=== PATIENT | female | born 1950 | race Caucasian/White ===

== ENCOUNTER 2019-07-22 14:19 | Inpatient (IN) | payer MEDICARE, OTHER ==
[~2019-07-22] VITALS: Ht 177.8 cm; Wt 72.6 kg
[2019-07-22 16:34] LABS: BASOPHILS # (AUTO) 0.1 (0.0-0.1); EOSINOPHILS # (AUTO) 0.1 (0.0-0.4); HEMATOCRIT 48.2 % (34.2-44.1); HEMOGLOBIN 16.7 g/dL (12.0-16.0); LYMPHOCYTES # (AUTO) 2.2 (1.0-3.2); LYMPHOCYTES % 17.6 % (18.0-39.1); MEAN CORPUSCULAR HEMOGLOBIN 30.3 pg (28-32); MEAN CORPUSCULAR HGB CONC 34.6 g/dL (31-35); MEAN CORPUSCULAR VOLUME 87.3 fL (81-99); MONOCYTES # (AUTO) 1.2 (0.2-0.8); MONOCYTES % 9.7 % (4.4-11.3); NEUTROPHILS # (AUTO) 8.8 (2.1-6.9); PLATELET COUNT 418 x10e3/uL (140-360); RED BLOOD COUNT 5.52 x10e6/uL (3.6-5.1); RED CELL DISTRIBUTION WIDTH 16.5 % (11.7-14.4)
[2019-07-22 16:44] LABS: INR 0.95; PROTHROMBIN TIME 13.2 seconds (11.9-14.5)
[2019-07-22 16:45] LABS: PARTIAL THROMBOPLASTIN TIME 26.7 seconds (23.8-35.5)
[2019-07-22 16:52] LABS: ALBUMIN 3.9 g/dL (3.5-5.0); ALBUMIN/GLOBULIN RATIO 1.1 (0.8-2.0); ANION GAP 18.5 mmol/L (8-16); CALCIUM 9.9 mg/dL (8.4-10.2); CREATININE, SERUM 0.97 mg/dL (0.57-1.11)
[2019-07-22 16:54] LABS: POTASSIUM 1.5 mmol/L (3.5-5.1)
[2019-07-22 17:00] LABS: CREATINE KINASE MB 10.9 ng/mL (0-5.0)
[2019-07-22] MEDS ORDERED: POTASSIUM CHLORIDE 20 MEQ TAB CR PO ONE (17:14)
[2019-07-22] MEDS ORDERED: KCL 20MEQ/.9 SOD CHL 1,000 ML IV ONE ×2 (17:14→17:15)
[2019-07-22] MEDS ORDERED: POTASSIUM CHLORIDE 20 MEQ TAB CR PO NR ×2 (17:15→20:45)
--- NOTE | 2019-07-22 17:17 | Diagnostic Imaging Report ---
EXAMINATION: Head CT HISTORY: Weakness, evaluate for stroke. COMPARISON: None. TECHNIQUE: Helical axial images of the head were obtained. Reformatted coronal and sagittal images from the axial data. Dose modulation, iterative reconstruction, and/or weight based adjustment of the mA/kV was utilized to reduce the radiation dose to as low as reasonably achievable. Image quality: Motion/streaking artifact limits the evaluation of the skull base and posterior cranial fossa. FINDINGS: Parenchyma: 1. No abnormal densities. 2. No mass or hemorrhage. No CT evidence of acute territorial vascular insult. Extra-axial spaces: Mild asymmetry of the inferior parietal sulci, there is partial effacement of the right compared to the left and questionable increase attenuation of the adjacent sulci, this may represent a be normal variation of the anatomy, less likely due to underlying inflammatory or ischemic process, there is no associated mass effect at this time, if clinical concern remains consider a brain MRI without and with contrast for further evaluation. Brain volume: Normal for age. Ventricles: No hydrocephalus or displacement. Arteries: No density suggestive of thrombus. Dural sinuses: No abnormal density. Foramen magnum: No mass, Chiari malformation, or basilar invagination. Sella: No obvious mass. Paranasal/mastoid sinuses: Imaged portions unremarkable. Skull/Scalp: No lytic or blastic lesions. No fractures. IMPRESSION: 1. No acute intracranial hemorrhage or cortical infarcts. 2. Questionable asymmetry and partial effacement of the right parietal sulci as detail above. Signed by: Dr. Miryam Wong M.D. on 07/22/2019 5:14 PM
--- NOTE | 2019-07-22 18:04 | NUR ---
covid swab done
[2019-07-22] MEDS ORDERED: ULTRAM 50MG50 MG PO (18:11)
[2019-07-22] MEDS ORDERED: VIT (18:11)
[2019-07-22] MEDS ORDERED: HYDROCODON-ACE1 EA12 PO (18:11)
[2019-07-22] MEDS ORDERED: NYSTATIN100000 UNI (18:11)
[2019-07-22] MEDS ORDERED: FERROUS SULFAT325 MG PO (18:11)
[2019-07-22] MEDS ORDERED: MELOXICAM7.5 MG (18:11)
[2019-07-22] MEDS ORDERED: BACLOFEN (18:11)
[2019-07-22] MEDS ORDERED: ALENDRONATE SOD70 MG PO (18:11)
[2019-07-22] MEDS ORDERED: CLONAZEPAM0.5 MG PO (18:11)
[2019-07-22] MEDS ORDERED: GABAPENTIN300 MG PO (18:11)
[2019-07-22] MEDS ORDERED: SUCRALFATE1 GM (18:11)
[2019-07-22] MEDS ORDERED: DULOXETINE HCL60 MG PO (18:11)
[2019-07-22] MEDS ORDERED: CLONAZEPAM (18:11)
[2019-07-22] MEDS ORDERED: K DUR10 MEQ (18:11)
[2019-07-22] MEDS ORDERED: COMBIVENT RESPIM4 GM (18:11)
[2019-07-22] MEDS ORDERED: OMEPRAZOLE PO (18:11)
[2019-07-22] MEDS ORDERED: LEVOCETIRIZINE PO (18:11)
[2019-07-22] MEDS ORDERED: TIZANIDINE HCL4 MG PO (18:11)
[2019-07-22] MEDS ORDERED: BENZONATATE100 MG (18:11)
[2019-07-22] MEDS ORDERED: ALENDRONATE (18:11)
--- NOTE | 2019-07-22 18:31 | NUR ---
tray eaten. no distress. both hands pt using without any difficulty. FROM.
--- NOTE | 2019-07-22 18:32 | NUR ---
straight cath ua, tere, sediment.
[2019-07-22] MEDS ORDERED: SODIUM CHLORIDE 0.9% 1000ML 1,000 ML IV STA (18:39)
--- NOTE | 2019-07-22 18:39 | NUR ---
water pitcher given with ice per request, blankets given, ordered more pillows.
[2019-07-22] MEDS ORDERED: HYDROCODONE/APAP 5MG-325MG TAB ONE (18:40)
[2019-07-22] MEDS ORDERED: HYDROCODONE/APAP 5MG-325MG TAB PO ONE (18:45)
[2019-07-22 18:48] LABS: BILIRUBIN,URINE MODERATE (NEGATIVE); CLARITY,URINE SL CLOUDY (CLEAR); COLOR,URINE STRAW (YELLOW); KETONES,URINE 2+ (NEGATIVE); LEUKOCYTE ESTERASE ,URINE NEGATIVE (NEGATIVE); NITRITE,URINE NEGATIVE (NEGATIVE); PROTEIN,URINE DIPSTICK 2+ (NEGATIVE); URINE UROBILINOGEN 1 mg/dL (0.2 - 1)
[2019-07-22 19:00] LABS: WBC,URINE (MAN) 0-5 /HPF (0-5)
[2019-07-22 19:01] LABS: BACTERIA,URINE RARE /HPF; EPITHELIAL CELLS,URINE FEW /LPF; RBC,URINE 0-5 /HPF (0-5)
--- NOTE | 2019-07-22 19:39 | Emergency Department Note ---
History of Present Illnes History of Present Illness Chief Complaint: General Medicine Complaints History of Present Illness This is a 69 year old female . Chief Complaint Comment weak x 5 days. aaox4. 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 pt usually can pivot, but feels weaker than usually. nad. no covid s/s. 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 Any updates have been documented here. Past Medical History Recent Fever: No Clinical Suspicion of Infectio: No New/Unexplained Change in Ment: No Past Medical History: Hypertension, Diabetes Other Surgery: rt leg amputee [facility] 1984 Social History Smoking Cessation: Former smoker Counseling Performed: No Alcohol Use: None Any Illegal Drug Use: No TB Exposure/Symptoms: No Physically hurt or threatened: No Other Last Flu: y Last Pneumovax: y Physical Exam Related Data Allergies: Coded Allergies: No Known Allergies (Unverified , 07/22/19) Triage Vital Signs Vital Signs Date Time Temp Pulse Resp B/P (MAP) Pulse Ox O2 Delivery O2 Flow Rate FiO2 07/22/19 14:24 98.2 79 16 126/95 95 Vital signs reviewed: Yes Physical Exam CONSTITUTIONAL Constitutional: Present well-developed, Present well-nourished HENT HENT: Present normocephalic, Present atraumatic, Present oropharynx clear/moist, Present nose normal HENT L/R: Present left ext ear normal, Present right ext ear normal EYES Eyes: Reports PERRL, Reports conjunctivae normal NECK Neck: Present ROM normal PULMONARY Pulmonary: Present effort normal, Present breath sounds normal CARDIOVASCULAR Cardiovascular: Present regular rhythm, Present heart sounds normal, Present capillary refill normal, Present normal rate GASTROINTESTINAL Abdominal: Present soft, Present nontender, Present bowel sounds normal GENITOURINARY Genitourinary: Present exam deferred SKIN Skin: Present warm, Present dry MUSCULOSKELETAL Musculoskeletal: Present ROM normal NEUROLOGICAL Neurological: Present alert, Present oriented x 3, Present other (right-sided amputee) PSYCHOLOGICAL Psychological: Present mood/affect normal, Present judgement normal Results Laboratory Result Diagram: 07/22/19 1603 07/22/19 1603 Laboratory Laboratory Tests Test 07/22/19 18:30 07/22/19 16:03 Urine Color Straw (YELLOW) Urine Clarity Sl cloudy (CLEAR) Urine pH 6.5 (5 - 7) Urine Specific [place] 1.025 (1.010-1.025) Urine Protein 2+ (NEGATIVE) Urine Glucose (UA) Negative (NEGATIVE) Urine Ketones 2+ (NEGATIVE) Urine Blood Trace (NEGATIVE) Urine Nitrite Negative (NEGATIVE) Urine Bilirubin Moderate (NEGATIVE) Urine Urobilinogen 1 mg/dL (0.2 - 1) Urine Leukocyte Esterase Negative (NEGATIVE) Urine RBC 0-5 /HPF (0-5) Urine WBC 0-5 /HPF (0-5) Urine Epithelial Cells Few /LPF (NONE) Urine Bacteria Rare /HPF (NONE) White Blood Count 12.59 x10e3/uL (4.8-10.8) Red Blood Count 5.52 x10e6/uL (3.6-5.1) Hemoglobin 16.7 g/dL (12.0-16.0) Hematocrit 48.2 % (34.2-44.1) Mean Corpuscular Volume 87.3 fL (81-99) Mean Corpuscular Hemoglobin 30.3 pg (28-32) Mean Corpuscular Hemoglobin Concent 34.6 g/dL (31-35) Red Cell Distribution Width 16.5 % (11.7-14.4) Platelet Count 418 x10e3/uL (140-360) Neutrophils (%) (Auto) 70.0 % (38.7-80.0) Lymphocytes (%) (Auto) 17.6 % (18.0-39.1) Monocytes (%) (Auto) 9.7 % (4.4-11.3) Eosinophils (%) (Auto) 1.0 % (0.0-6.0) Basophils (%) (Auto) 1.0 % (0.0-1.0) Neutrophils # (Auto) 8.8 (2.1-6.9) Lymphocytes # (Auto) 2.2 (1.0-3.2) Monocytes # (Auto) 1.2 (0.2-0.8) Eosinophils # (Auto) 0.1 (0.0-0.4) Basophils # (Auto) 0.1 (0.0-0.1) Absolute Immature Granulocyte (auto 0.09 x10e3/uL (0-0.1) Prothrombin Time 13.2 seconds (11.9-14.5) Prothromb Time International Ratio 0.95 Activated Partial Thromboplast Time 26.7 seconds (23.8-35.5) Sodium Level 146 mmol/L (136-145) Potassium Level 1.5 mmol/L (3.5-5.1) Chloride Level 98 mmol/L (98-107) Carbon Dioxide Level 31 mmol/L (22-29) Anion Gap 18.5 mmol/L (8-16) Blood Urea Nitrogen 14 mg/dL (7-26) Creatinine 0.97 mg/dL (0.57-1.11) Estimat Glomerular Filtration Rate 57 ML/MIN (60-) BUN/Creatinine Ratio 14 (6-25) Glucose Level 144 mg/dL (74-118) Calcium Level 9.9 mg/dL (8.4-10.2) Total Bilirubin 1.1 mg/dL (0.2-1.2) Aspartate Amino Transf (AST/SGOT) 119 IU/L (5-34) Alanine Aminotransferase (ALT/SGPT) 69 IU/L (0-55) Alkaline Phosphatase 56 IU/L (40-150) Creatine Kinase 2635 IU/L (29-168) Creatine Kinase MB 10.90 ng/mL (0-5.0) Troponin I 0.026 ng/mL (0-0.300) Total Protein 7.6 g/dL (6.5-8.1) Albumin 3.9 g/dL (3.5-5.0) Globulin 3.7 g/dL (2.3-3.5) Albumin/Globulin Ratio 1.1 (0.8-2.0) Lab results reviewed: Yes Critical Care Time Total Critical Care Time (min): 35 Critical care time exclusive o: separately billable procedures Critcal care necessary due to: metabolic failure Assessment & Plan Medical Decision Making MDM 69-year-old female arrives to the ED with complaints of generalized malaise and weakness. Patient admitted to the wheelchair at baseline, states her upper extremities feel weaker than usual. Patient states she has been in a wheelchair for nearly 3 decades and while she suffers from chronic rotator cuff and muscle aches this degree of weakness is different. Patient's potassium was 1.5, aggressive oral and IV replacement done in the ED. Patient with marked CK elevation concerning for rhabdo. Patient admitted for fluid resuscitation and electrolyte replacement. Patient hemodynamically stable at time of admission. Assessment & Plan Final Impression: (1) Hypokalemia (2) Rhabdomyolysis Depart Disposition: HOME, SELF-CARE Last Vital Signs Date Time Temp Pulse Resp B/P (MAP) Pulse Ox O2 Delivery O2 Flow Rate FiO2 07/22/19 18:18 78 20 148/69 07/22/19 14:24 98.2 95 Home Meds Reported Medications Vitamin B Complex (B COMPLEX) 1 Each Tablet, 1 TAB.CHEW PO QD17 07/23/19 Ascorbic Acid/Ascorbate Sodium (Vitamin C 250 mg Tablet Chew) 250 Mg Tab.chew, 2 TAB.CHEW PO QD17 07/23/19 Multivit-Min/Folic Acid/Qrr356 (Alive Women's Gummy Vitamin) 1 Each Tab.chew, 2 TAB.CHEW PO QD17 07/23/19 [elbererry gummies] No Conflict Check, 2 TAB.CHEW PO QD17 07/23/19 Ergocalciferol (Vitamin D2) (Ergocal) 62.5 Mcg Capsule, 1.25 MG PO weekly Q sunday07/23/19 Hydrocodone Bit/Acetaminophen (HYDROCODON-ACETAMINOPH 7.5-325) 1 Each Tablet, 1 TAB PO Q4HR PRN for MODERATE PAIN (4-6) 07/22/19 Duloxetine HCl (Duloxetine HCl) 60 Mg Capsule.dr, 60 MG PO DAILY 07/22/19 [Omeprazole] No Conflict Check, 40 MG PO DAILY 07/22/19 Ipratropium/Albuterol Sulfate (COMBIVENT RESPIMAT INHAL SPRAY) 4 Gm Aer.w.adap 07/22/19 Gabapentin (GABAPENTIN) 300 Mg Capsule, 600 MG PO TID 07/22/19 [Levocetirizine] No Conflict Check, 5 MG PO QD17 PRN for ALLERGY 07/22/19 Tizanidine Hcl (TIZANIDINE HCL) 4 Mg Tablet, 4 MG PO Q8H PRN for MUSCLE SPASMS 07/22/19 Clonazepam (CLONAZEPAM) 0.5 Mg Tablet, 0.5 MG PO TID PRN for ANXIETY 07/22/19 Tramadol Hcl* (ULTRAM 50MG*) 50 Mg Tab, 50 MG PO PRN PRN for MODERATE PAIN (4-6) 07/22/19 Alendronate Sodium (ALENDRONATE SODIUM) 70 Mg Tablet, 70 MG PO weekly Q Wednesdays07/22/19 Ferrous Sulfate (FERROUS SULFATE) 325 Mg Tablet, 1 TAB PO DAILY 07/22/19 Discontinued Reported Medications Nystatin (NYSTATIN) 100,000 Unit/1 Ml Oral.susp 07/22/19 Benzonatate (BENZONATATE) 100 Mg Capsule 07/22/19 [Vit] No Conflict Check 07/22/19 [Clonazepam] No Conflict Check 07/22/19 [Alendronate] No Conflict Check 07/22/19 Potassium Chloride* (K DUR*) 10 Meq Tabcr 07/22/19 [Baclofen] No Conflict Check 07/22/19 Meloxicam (MELOXICAM) 7.5 Mg Tablet 07/22/19 Sucralfate (SUCRALFATE) 1 Gm Tablet 07/22/19 LESLEY PACHECO, DO Jul 22, 2019 19:39
--- NOTE | 2019-07-22 20:00 | NUR ---
Spoke to AOS regarding patient low potassium level 1.5 and no order for tele, no order to redraw potassium level after po and IV coverage . Patient to be admitted to floor. AOS to speak to ER
[2019-07-22] MEDS ORDERED: IPRATROPIUM/ALBUTEROL SULFATE 4 GM INH INH PRN (20:15)
[2019-07-22] MEDS ORDERED: TIZANIDINE HCL 4 MG TAB PO PRN (20:15)
[2019-07-22] MEDS ORDERED: GABAPENTIN 300 MG CAP PEG PRN (20:15)
[2019-07-22] MEDS ORDERED: POTASSIUM CHLORIDE 10MEQ/100ML 100 ML INJ STA (20:41)
[2019-07-22] MEDS ORDERED: D5/.45NS KCL 40MEQ **PREMIX BAG 1000ML IV ONE ×2 (20:45→21:45)
[2019-07-22 21:06] LABS: FREE THYROXINE INDEX 1.9855 (1.4-3.8); THYROID STIMULATING HORMONE 2.362 uIU/mL (0.350-4.940)
--- NOTE | 2019-07-22 21:12 | NUR ---
Spoke to Dr Leone regarding orders placed for additional potassium 80mEq po x1, potassium Chloride 10mEQ IVx1, D51/2NS with 40KCL. Patient had 80mEq po in ER and 20mEq IV with NS 1L. Potassium level redrawn 1.8, clarify okay to give new orders for potassium. Okay to give potassium orders and magnesium level low will place orders for IV magnesium replacement.
[2019-07-22] MEDS ORDERED: MAGNESIUM SULFATE 2GM/50ML 50 ML IV ONE (21:15)
--- NOTE | 2019-07-22 21:40 | NUR ---
Pharmacy needing rate for D51/2 NS with 40 mEq KCL. Spoke with Dr Leone regarding clarification on rate. 75ml/hr.
[2019-07-22] MEDS ORDERED: SODIUM CHLORIDE 0.9% 250ML 250 ML ONE (21:50)
[2019-07-22] MEDS: POTASSIUM CHLORIDE 20 MEQ TAB CR PO NR (22:30)
[2019-07-22 23:00] VITALS: BP 135/58
--- NOTE | 2019-07-22 23:00 | NUR ---
Patient c/o IV burning, IV assessed and potassium chloride decreased to 40ml/hr. Will continue to monitor
--- NOTE | 2019-07-22 23:05 | NUR ---
Patient c/o IV burning, IV assessed. Educated patient that side effect of potassium. Patient states " I cannot take it, please slow it down." and potassium chloride decreased to 35ml/hr. Will continue to monitor
--- NOTE | 2019-07-22 23:10 | NUR ---
Patient c/o IV burning, IV assessed, blood return and flushes easily. Educated reinforced, side effect of potassium. Patient states " Can please slow it down." and potassium chloride decreased to 30ml/hr. Will continue to monitor.
--- NOTE | 2019-07-22 23:30 | NUR ---
Patient c/o IV burning, IV assessed, blood return and flushes easily. New IV placed to right forearm 20g. Patient continues to complain IV burning " Can please slow it down." and potassium chloride decreased to 25ml/hr. Will continue to monitor.
[2019-07-23] VITALS (7 sets, daily range): BP systolic 115–138; BP diastolic 64–93
--- NOTE | 2019-07-23 | NUR ---
Patient c/o IV burning, IV assessed, blood return and flushes easily. Patient request to slow potassium down, IV burning and potassium chloride decreased to 20ml/hr. Potassium level to be redrawn after IV runner, Blood drawn delayed r/t Patient request IV to be decreased. Will continue to monitor.
--- NOTE | 2019-07-23 00:30 | NUR ---
Patient tolerating potassium chloride at 20ml/hr with NS runner. Will continue to monitor.
[2019-07-23] MEDS ORDERED: MAGNESIUM SULFATE 2GM/50ML 50 ML IV ONE (00:41)
--- NOTE | 2019-07-23 01:27 | History and Physical ---
PRIMARY CARE PHYSICIAN: Dr. Salvador at [facility]. CHIEF COMPLAINT: Generalized weakness in the upper extremities and left leg with contraction of her both hands. HISTORY OF PRESENT ILLNESS: This is a 69-year-old female with past medical history of anxiety, depression, chronic back pain, IBS, presented to the ER with complaints of increasing weakness, especially in the bilateral upper extremities with contraction of both hands. She reports 2 weeks ago had noticed pain and spasm in the left thigh area. She continued to get weaker to the point where 2 days ago, she had to call EMS because she could not move her upper extremities. They assessed her for stroke and told her it is less likely that is a stroke. So, she was advised to stay at home due to the pandemic. She continued to have the weakness and contractures, so presented to the ER for further evaluation for her PCP instructions. She denies any chest pain, shortness of breath, slurred speech, change in mental status, change in vision, nausea, or vomiting. She denies any pain in the abdomen or the lower extremities, no swelling or redness. 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 In the ER, she was noted to have severe hypokalemia with a potassium level of 1.5. CK was 2635. She was admitted for further evaluation. CT was negative for acute process. PAST MEDICAL HISTORY: 1. Anxiety. 2. Depression. 3. IBS. 4. Wheelchair bound. PAST SURGICAL HISTORY: She had right AKA, gastric bypass, cholecystectomy, , right shoulder repair. FAMILY MEDICAL HISTORY: She reports father of alcohol cirrhosis. SOCIAL HISTORY: She reports smokes E-cigarettes. Denies any alcohol or illicit drug use. ALLERGIES: NO KNOWN DRUG ALLERGIES. REVIEW OF SYSTEMS: Twelve systems reviewed and negative except as reported in HPI. PHYSICAL EXAMINATION: VITAL SIGNS: Temperature 98.2, pulse is 79, respirations 16, blood pressure 126/95, pulse ox is 95% on room air. GENERAL: No acute distress. HEENT: Normocephalic, atraumatic. NECK: Supple. LUNGS: Clear to auscultation. CARDIOVASCULAR: Regular rate and rhythm. GI: Soft and nontender. NEUROLOGIC: Alert, awake, and oriented x3. MUSCULOSKELETAL: Right AKA in 1980s. Left lower extremity, no edema or swelling. SKIN: Dry and intact. PSYCH: Calm. LABORATORY DATA: WBC 12.59, hemoglobin 16.7, hematocrit 48.2, platelets 418. Sodium 146, potassium 1.5, CO2 31, anion gap 18.5, creatinine 0.97, estimated GFR is 57, glucose 144, magnesium 1.5, AST 119, ALT 69. CK 2635, CK-MB 10.90, troponin 0.026, globulin 3.7, PT 13.2, INR 0.95, APTT 26.7. Urine is unremarkable. Brown PCR is pending. CT brain, no acute process noted, questionable asymmetry and partial effacement of the parietal sulci as detailed above. IMPRESSION AND PLAN: 1. Severe hypokalemia. Potassium is 1.5. She was given 80 mEq in the ER and 1 L NS. Repeat potassium regularly q.4. and replace as needed. We will place on telemetry, we will check TSH. 2. Increased weakness and contraction. Most likely due to hypokalemia. CT brain was negative for acute process. We will continue to monitor for now. 3. Mild leukocytosis. WBC is 12.59. We will monitor off antibiotics as there is no signs of infection and patient is afebrile. 4. Hemoconcentration. Hemoglobin is 16.7. Likely due to dehydration. We will continue with IV fluid hydration and repeat labs in a.m. 5. Rhabdomyolysis. CK is 2635. Reports has not had anything to eat or drink in a few days. Because she said she did not have an appetite, and that could also because of hypokalemia. We will continue to hydrate with IV fluids and we will check labs in a.m. 6. Anxiety and depression. Continue home medications. 7. Chronic back pain and phantom pain. Continue hydrocodone and Neurontin. 8. History of IBS. She denies any diarrhea. Has not had a flare up in a few months. 9. Deep vein thrombosis prophylaxis. Lovenox daily. Continue to monitor potassium level regularly and replace as needed. Monitor on tele for any arrhythmias and pain management. Dictated by CECILIA Christian Ashleyching Jere Leone MD MY/MODL /[id number]
[2019-07-23] MEDS ORDERED: ERGOCAL62.5 MCG PO (02:57)
[2019-07-23] MEDS ORDERED: ALIVE WOMEN'S1 EAC1 PO (03:01)
[2019-07-23] MEDS ORDERED: VITAMIN C 250250 MG PO (03:01)
[2019-07-23] MEDS ORDERED: ELDERBERRY PO (03:01)
[2019-07-23] MEDS ORDERED: B COMPLEX1 EACH PO (03:01)
[2019-07-23 05:04] LABS: BASOPHILS # (AUTO) 0.1 (0.0-0.1); BASOPHILS % 1.2 % (0.0-1.0); EOSINOPHILS # (AUTO) 0.1 (0.0-0.4); EOSINOPHILS % 1.2 % (0.0-6.0); HEMATOCRIT 42.6 % (34.2-44.1); HEMOGLOBIN 14.2 g/dL (12.0-16.0); LYMPHOCYTES % 20.7 % (18.0-39.1); MEAN CORPUSCULAR HEMOGLOBIN 30.7 pg (28-32); MEAN CORPUSCULAR HGB CONC 33.3 g/dL (31-35); MONOCYTES # (AUTO) 0.8 (0.2-0.8); NEUTROPHILS # (AUTO) 6.6 (2.1-6.9); NEUTROPHILS % 68.2 % (38.7-80.0); PLATELET COUNT 239 x10e3/uL (140-360); RED BLOOD COUNT 4.63 x10e6/uL (3.6-5.1); RED CELL DISTRIBUTION WIDTH 16.6 % (11.7-14.4)
[2019-07-23 05:35] LABS: ANION GAP 16.8 mmol/L (8-16); BLOOD UREA NITROGEN 13 mg/dL (7-26); BUN/CREATININE RATIO 16 (6-25); CARBON DIOXIDE 25 mmol/L (22-29); CHLORIDE 106 mmol/L (98-107); CREATININE, SERUM 0.83 mg/dL (0.57-1.11); EST GLOMERULAR FILTRATION RATE > 60 ML/MIN (60-); GLUCOSE 140 mg/dL (74-118); SODIUM 145 mmol/L (136-145)
[2019-07-23 05:38] LABS: CALCIUM 8.4 mg/dL (8.4-10.2); POTASSIUM 2.8 mmol/L (3.5-5.1)
[2019-07-23] MEDS ORDERED: POTASSIUM CHLORIDE 20 MEQ TAB CR PO STA (05:56)
--- NOTE | 2019-07-23 05:58 | NUR ---
Called Dr Leone regarding lab alert potassium 2.8. Give potassium 40mEq po x1 now, then potassium 20 mEq po in 2 hrs. Imodium 4 mg po x1.
[2019-07-23] MEDS ORDERED: LOPERAMIDE HCL 2 MG CAP PO ONE (06:00)
[2019-07-23] MEDS ORDERED: ALENDRONATE SODIUM 70 MG TAB PO SCH (06:30)
[2019-07-23] MEDS ORDERED: POTASSIUM CHLORIDE 20 MEQ TAB CR PO ONE ×2 (08:00→16:35)
[2019-07-23] MEDS: MELOXICAM 7.5 MG TAB PO SCH (09:00)
[2019-07-23] MEDS: FERROUS SULFATE 325 MG TAB PO SCH (09:43)
[2019-07-23] MEDS: SUCRALFATE 1 GM TAB PO SCH (09:43)
[2019-07-23] MEDS: POTASSIUM CHLORIDE 10MEQ EA PO SCH (09:44)
[2019-07-23] MEDS: SODIUM CHLORIDE 0.9% 1000ML 1,000 ML IV SCH ×2 (09:45→18:32)
--- NOTE | 2019-07-23 10:30 | NUR ---
ASSESSMENT: Spiritual concern Pt thankful for hospital and treatment. Pt states she was more ill than what she originally thought. Pt identifies as Holiness. Pt states her daughter is "a blessing" by helping care for her. Intervention: Provided empathic listening and unhurried pastoral presence. Provided information on how to reach script developer, if needed. Outcome: Pt expressed appreciation for visit. No need to follow at this time. JADEN KIRKLAND [employer] Spiritual Care Department O: [phone]
[2019-07-23] MEDS: POTASSIUM CHLORIDE 20 MEQ TAB CR PO NR (13:42)
[2019-07-23] MEDS: HYDROCODONE/APAP 7.5MG-325MG 1 EA TAB PO PRN ×2 (15:21→22:23)
[2019-07-23 15:34] LABS: ANION GAP 14.8 mmol/L (8-16); BLOOD UREA NITROGEN 9 mg/dL (7-26); BUN/CREATININE RATIO 11 (6-25); CALCIUM 8.1 mg/dL (8.4-10.2); CARBON DIOXIDE 25 mmol/L (22-29); CHLORIDE 107 mmol/L (98-107); CREATININE, SERUM 0.79 mg/dL (0.57-1.11); EST GLOMERULAR FILTRATION RATE > 60 ML/MIN (60-); GLUCOSE 121 mg/dL (74-118); SODIUM 144 mmol/L (136-145)
[2019-07-23 15:36] LABS: POTASSIUM 2.8 mmol/L (3.5-5.1)
--- NOTE | 2019-07-23 17:05 | NUR ---
Nutrition Intervention Note RD Recommendation(s) for Physician: -Recommend Ensure Compact BID for added nutrition -Continue current diet as ordered Plan of Care: RD following, monitoring for tolerance and adequacy Nutrition reason for involvement: Nutrition Risk Trigger MST 5 RD Assessment (07/23/19) Pt is a 69 year old female. Problems addressed this visit include severe hypokalemia, increased weakness and contraction, mild leukocytosis, hemocentration, and rhadomyolysis. Pt reports a decreased appetite (timeframe unknown) and it is recorded pt consumed 25% of breakfast and lunch today. No weight loss reported and pt mentioned she has been weighing 220 lbs and stated weight in chart of 160 lbs is not accurate. No N/V noted. Pt reports she is missing teeth and would like her meals to contained chopped meats and soft foods. Informed food cashier staff. Recommend Ensure Compact BID. Will continue to monitor. Principal Problems/Diagnoses: severe hypokalemia, increased weakness and contraction, mild leukocytosis, hemocentration, rhadomyolysis PMH: anxiety, depression, IBS, wheelchair bound, right AKA, gastric bypass, cholecystectomy GI: soft, large abdomen, last recorded BM 07/22 x 3 Skin: intact Labs: (07/23/19) Na 145, K 2.8, BUN 13, Cr 0.83, Glu 140 Meds: carafate, ferrous sulfate, KCl Ht: 70 inches Wt: 220 lbs (per pt) BMI: 31.6 kg/m2 IBW: 150 lbs Malnutrition Evaluation (07/23/19) The patient does not meet criteria for a specified degree of malnutrition at this time. Will re-evaluate at follow-up as appropriate. Nutrition Prescription (Diet Order): cardiac/soft foods/no caffeine Estimated Nutritional Needs: 6389-1112 calories/day (22-25 kcal/kg IBW) 102-170 g protein/day (1.5-2 g pro/kg IBW) Diet Adequacy: Not meeting calorie needs, Not meeting protein needs Tolerance: Tolerating PO Diet Education Needs Assessment: Pt declined the need for diet education Nutrition Care Level: low Nutrition Diagnosis: Inadequate energy intake related to decreased ability to consume sufficient energy as evidenced by pt reports eating <50% of meals. Goal: Patient will meet 75-100% of estimated needs by follow up Progress: N/A Interventions: -modified diet, Commercial beverage Monitoring/Evaluation: -Total energy intake, Total protein intake, Modified diet, Liquid supplement, Weight change Signed: Erum Iraheta RD, LD
--- NOTE | 2019-07-23 17:30 | NUR ---
BSSR RECEIVED FROM GREGORY DEAN, PATIENT IN BED NO DISTRESS NOTED, IV FLUIDS, PAIN MANAGEMENT, AND SKIN CARE. PATIENT AOX3, RIGHT AKA, BEDBOUND, ABLE TO REPOSITION WITH ASSIST x 1, CALL LIGHT WITHIN REACH
[2019-07-23] MEDS: ENOXAPARIN SOD INJ 40 MG/0.4 ML SYR SC SCH (18:32)
[2019-07-23] MEDS ORDERED: POTASSIUM CHLORIDE 10MEQ/100ML 100 ML INJ SCH (21:45)
[2019-07-23] MEDS ORDERED: GABAPENTIN 300 MG CAP PO PRN (21:45)
[2019-07-23] MEDS ORDERED: POTASSIUM CHLORIDE 10MEQ/100ML 100 ML IV SCH (22:00)
[2019-07-23] MEDS: DIPHENOXYLATE/ATROPINE TAB PO PRN (22:23)
[2019-07-23] MEDS: CLONAZEPAM 0.5 MG TAB PO PRN (22:23)
[2019-07-24] VITALS (12 sets, daily range): BP systolic 120–133; BP diastolic 64–95
--- NOTE | 2019-07-24 00:22 | Progress Note ---
DATE: 07/23/2019 CHIEF COMPLAINT: Generalized weakness, contraction of upper extremities. SUBJECTIVE: The patient reports contraction is resolved, but still a little weak in the upper extremities and not able to hold her weight. She reports had diarrhea x3 overnight, which is usually normal with her IBS. We will continue to replace potassium. No chest pain, no palpitations, nausea, or vomiting. PHYSICAL EXAMINATION: VITAL SIGNS: Temperature 97.9, pulse is 68, respirations 20, blood pressure 137/71, and pulse ox is 97% on room air. GENERAL: No acute distress. HEENT: Normocephalic and atraumatic. NECK: Supple. LUNGS: Clear to auscultation. CARDIOVASCULAR: Regular rate and rhythm. S1 and S2 heard. GI: Soft and nontender obese. NEUROLOGIC: Alert, awake, and oriented x3. MUSCULOSKELETAL: Right AKA , left lower extremity, no edema or swelling. SKIN: Dry and intact. PSYCH: Calm. LABORATORY DATA: WBC 9.64, hemoglobin , hematocrit 42.6, and platelets 239. Sodium 144, potassium 2.8, chloride 107, carbon dioxide 25, BUN is 9, creatinine 0.79, estimated GFR is greater than 60, and calcium 8.1. CK . TSH 2.362. Coronavirus PCR is pending. IMPRESSION: 1. Severe hypokalemia. Continue to replace and recheck. Latest potassium is 2.8. We will continue to monitor on tele and replace as needed. 2. Increased generalized weakness and contracture. Again, this is most likely due to hypokalemia. CT brain negative, contraction has resolved and weakness, improving. Physical therapy has been consulted to evaluate and treat. 3. Mild leukocytosis. Resolved. 4. Hemoconcentration, improved, likely due to poor p.o. intake. 5. Rhabdomyolysis. CK . We will continue with IV fluid hydration. 6. History of anxiety and depression. Resume home medication. 7. Chronic back pain , right lower extremity. Continue hydrocodone and Neurontin p.r.n. 8. History of IBS. Reported diarrhea x3 last night, but has not moved any today. Lomotil ordered p.r.n. 9. Deep vein thrombosis prophylaxis. Lovenox daily. PLAN: Continue monitoring potassium levels closely and replace as needed. Physical therapy as tolerated. Dictated by CECILIA Christian Ashleyching MD [facility]/MODL /[id number]
[2019-07-24] MEDS: TIZANIDINE HCL 4 MG TAB PO PRN ×2 (02:48→20:25)
[2019-07-24] MEDS: HYDROCODONE/APAP 7.5MG-325MG 1 EA TAB PO PRN ×3 (04:00→23:25)
[2019-07-24] MEDS ORDERED: POTASSIUM CHLORIDE 10MEQ/100ML 100 ML IV ONE (05:15)
[2019-07-24 05:16] LABS: ANION GAP 14.2 mmol/L (8-16); BLOOD UREA NITROGEN 7 mg/dL (7-26); BUN/CREATININE RATIO 10 (6-25); CALCIUM 7.4 mg/dL (8.4-10.2); CARBON DIOXIDE 22 mmol/L (22-29); CHLORIDE 111 mmol/L (98-107); CREATININE, SERUM 0.72 mg/dL (0.57-1.11); EST GLOMERULAR FILTRATION RATE > 60 ML/MIN (60-); GLUCOSE 132 mg/dL (74-118); POTASSIUM 3.2 mmol/L (3.5-5.1); SODIUM 144 mmol/L (136-145)
[2019-07-24] MEDS: SODIUM CHLORIDE 0.9% 1000ML 1,000 ML IV SCH ×2 (05:28→14:19)
--- NOTE | 2019-07-24 05:34 | NUR ---
1 dose of potassium start IV as ordered for hypokalemia, K+ level currently 3.2 this morning labs, patient made aware of potassium level, requesting that I run the potassium via IV @ 30cc/hr, advised patient of dosing rate she stated "oh no that will burn, it has to be turn down to at least 35 cc/hr or it will hurt", request carried out,
--- NOTE | 2019-07-24 07:07 | NUR ---
potassium level 3.2, potassium 10MEQ IV given as ordered, DIANNE brink updated with current lab values, patient AOX3, pericare given X 5 episodes overnight, incontinence care given, one episode of diarrhea noted, call light within reach
[2019-07-24] MEDS: ALBUTEROL SULF 0.083% NEB SOLN 3 ML NEB NEB SCH ×4 (08:00→23:00)
[2019-07-24] MEDS: POTASSIUM CHLORIDE 10MEQ EA PO SCH (08:09)
[2019-07-24] MEDS: MELOXICAM 7.5 MG TAB PO SCH (08:10)
[2019-07-24] MEDS: SUCRALFATE 1 GM TAB PO SCH (08:10)
[2019-07-24] MEDS: ASCORBIC ACID 500 MG TAB PO SCH (08:10)
[2019-07-24] MEDS: DULOXETINE HCL 30 MG DELAYED RELEASE PO SCH (08:11)
[2019-07-24] MEDS: FERROUS SULFATE 325 MG TAB PO SCH (08:11)
[2019-07-24] MEDS ORDERED: ERGOCALCIFEROL 50,000 UNIT CAP PO SCH (09:00)
[2019-07-24] MEDS: FOLIC ACID/CYANOCOB/PYRIDOXINE TAB PO SCH (16:11)
[2019-07-24] MEDS: MULTIVITAMINS/MINERALS TAB PO SCH (16:11)
[2019-07-24] MEDS: ENOXAPARIN SOD INJ 40 MG/0.4 ML SYR SC SCH (16:11)
--- NOTE | 2019-07-24 17:01 | Progress Note ---
DATE: 07/24/2019 CHIEF COMPLAINT: Generalized weakness and contracted upper extremity. SUBJECTIVE: The patient reports weakness is improving, muscle ache on the left lower extremity is improving with pain medication. She denies any chest pain, shortness of breath, fever, nausea, or vomiting. Potassium this morning was 3.2. Reports had diarrhea x1 overnight. PHYSICAL EXAMINATION: VITAL SIGNS: Temperature 97.3, pulse is 68, respirations 20, blood pressure 132/69, and pulse ox is 96% on room air. GENERAL: No acute distress. HEENT: Normocephalic and atraumatic. NECK: Supple. LUNGS: Clear to auscultation. CARDIOVASCULAR: Regular rate and rhythm. GI: Soft and nontender. Obese. NEUROLOGIC: Alert, awake, and oriented x3. MUSCULOSKELETAL: Right AKA. SKIN: Dry and intact. PSYCH: Calm. LABORATORY DATA: Sodium 144, potassium 3.2, CO2 22, creatinine 0.72, glucose 132, and calcium is 7.4. CK 4058. IMPRESSION: 1. Severe hypokalemia with muscular weakness and contraction. Replete, currently 3.2. We will continue to monitor closely and replete. No interval changes. 2. Mild leukocytosis. Resolved, afebrile. 3. Mobilization. Resolved. 4. Rhabdomyolysis. CK is 4058. We will continue with IV fluid hydration and repeat labs. 5. History of anxiety and depression. Resume home medications. 6. Chronic back pain and phantom pain in the right lower extremity. Continue hydrocodone and Neurontin p.r.n. 7. History of irritable bowel syndrome. We will continue with Lomotil as needed. 8. Debility. PT to evaluate and treat. May need home health for physical therapy. 9. Deep vein thrombosis prophylaxis. Lovenox. PLAN: Continue replacing potassium and IV fluid hydration. We will consult case management for home health, PT, OT. Discussed with daughter, who is at the bedside and on the phone regarding treatment plan. Dictated by CECILIA Christian Tung Leone MD MY/MODL /[id number]
[2019-07-24] MEDS: CLONAZEPAM 0.5 MG TAB PO PRN (20:25)
[2019-07-24] MEDS: DIPHENOXYLATE/ATROPINE TAB PO PRN (20:25)
--- NOTE | 2019-07-24 22:37 | NUR ---
PATIENT CALL LIGHT ANSWERED, STATED "i WAS ABOUT TO PEE BUT YOU WERE TOO QUICK" ADVISED ME THAT SHE WILL PEE IN HER INCONTINENCE BRIEF IN FEW MINUTES AND WOULD LIKE TO BE CHANGED, BEDPAN OFFERED, REFUSED STATING, " I DONT FEEL LIKE LIFTING MY HIP UP AND CAUSING PAIN", CARE GIVEN, BARRIER CREAM PLACED" PERSONAL BELONGINGS WITHIN REACH, WILL CONTINUE TO MONITOR
--- NOTE | 2019-07-24 23:07 | NUR ---
PATIENT REQUESTING CARAFATE PO BE INCREASED FROM ONCE A DAY TO TID PO, MD ARMSTRONG CALLED [employer]IC[employer] STATED "LEAVE A MESSAGE " ADVISED VIA [employer] OF REQUEST TO INCREASE CARAFATE TO TID PO, AWAITING ORDERS
[2019-07-24] MEDS ORDERED: SUCRALFATE 1 GM TAB PO ONE (23:30)
[2019-07-25] VITALS (11 sets, daily range): BP systolic 105–151; BP diastolic 48–88
[2019-07-25] MEDS: SODIUM CHLORIDE 0.9% 1000ML 1,000 ML IV SCH ×3 (00:33→14:28)
[2019-07-25] MEDS: TIZANIDINE HCL 4 MG TAB PO PRN ×2 (04:52→21:43)
[2019-07-25] MEDS: HYDROCODONE/APAP 7.5MG-325MG 1 EA TAB PO PRN ×4 (05:45→19:31)
[2019-07-25 05:50] LABS: ANION GAP 10.1 mmol/L (8-16); BLOOD UREA NITROGEN 6 mg/dL (7-26); BUN/CREATININE RATIO 8 (6-25); CALCIUM 7.4 mg/dL (8.4-10.2); CARBON DIOXIDE 25 mmol/L (22-29); CHLORIDE 108 mmol/L (98-107); CREATININE, SERUM 0.72 mg/dL (0.57-1.11); EST GLOMERULAR FILTRATION RATE > 60 ML/MIN (60-); GLUCOSE 121 mg/dL (74-118); POTASSIUM 3.1 mmol/L (3.5-5.1); SODIUM 140 mmol/L (136-145)
[2019-07-25] MEDS: ALBUTEROL SULF 0.083% NEB SOLN 3 ML NEB NEB SCH ×3 (07:00→23:00)
--- NOTE | 2019-07-25 07:24 | NUR ---
BSSR GIVEN TO RN SONIDO, PATIENT AWAKE ALERT, NO DISTRESS NOTED, AM LABS PENDING, MADE AWARE OF PATIENT PLAN OF CARE , CALL LIGHT WITHIN REACH
--- NOTE | 2019-07-25 08:14 | NUR ---
ORDERS FOR HOME HEALTH SKILLED NURSE AND P.T. CHOICE LETTER SIGNED FOR MY NURSE HOME CARE COPY OF CHOICE LETTER TO PT PH: [phone] FAX:[phone] FAXED CLINICAL TO ABOVE NUMBER; CONFIRMATION REC'D IMM EXPLAINED AND SIGNED BY PT ON 07/24 COPY OF IMM GIVEN TO PT IMM PLACED ON CHART PER DR ARMSTRONG, PT MAY BE DISCHARGED HOME TODAY
[2019-07-25] MEDS: MELOXICAM 7.5 MG TAB PO SCH (09:00)
[2019-07-25] MEDS: ASCORBIC ACID 500 MG TAB PO SCH ×2 (09:00→09:21)
[2019-07-25] MEDS: FERROUS SULFATE 325 MG TAB PO SCH (09:20)
[2019-07-25] MEDS: SUCRALFATE 1 GM TAB PO SCH ×3 (09:20→21:11)
[2019-07-25] MEDS: DULOXETINE HCL 30 MG DELAYED RELEASE PO SCH (09:20)
[2019-07-25] MEDS: POTASSIUM CHLORIDE 10MEQ EA PO SCH (09:21)
[2019-07-25] MEDS ORDERED: POTASSIUM BICARBONATE/CIT AC 20 MEQ TABLET.EFF PO ONE (14:45)
[2019-07-25] MEDS: MULTIVITAMINS/MINERALS TAB PO SCH (17:00)
[2019-07-25] MEDS: FOLIC ACID/CYANOCOB/PYRIDOXINE TAB PO SCH (17:00)
--- NOTE | 2019-07-25 18:10 | Progress Note ---
DATE: 07/25/2019 CHIEF COMPLAINT: Generalized weakness and contracted upper extremity. SUBJECTIVE: The patient is seen sitting up in her bed, she feeling better. Potassium this morning 3.1 and she denies any diarrhea overnight. PHYSICAL EXAMINATION: VITAL SIGNS: Temperature 97.6, pulse is 64, respirations 18, blood pressure 151/68, pulse ox is 97% on room air. GENERAL: No acute distress. HEENT: Normocephalic, atraumatic. NECK: Supple. LUNGS: Clear to auscultation. CARDIOVASCULAR: Regular rate and rhythm. GI: Soft and nontender. NEUROLOGIC: Alert, awake, and oriented x3. MUSCULOSKELETAL: Right AKA. SKIN: Dry and intact. PSYCH: Calm. LABORATORY DATA: Sodium 140, potassium 3.1, CO2 25, creatinine 0.72, estimated GFR greater than 50, calcium 7.4, CK 7236 IMPRESSION: 1. Severe hypokalemia with muscular weakness and contraction. Replete and currently 3.1. We will repeat BMP in the morning and replete as needed. Continue daily potassium intake. 2. Hemoconcentration. Resolved. 3. Rhabdomyolysis. CK is trending down, 3236. We will continue IV fluid hydration. 4. History of anxiety and depression. Resume home medication. 5. Chronic back pain and phantom pain to the right lower extremity. Continue pain management with hydrocodone and Neurontin p.r.n. 6. History of irritable bowel syndrome. We will continue with Lomotil as needed. 7. Debility. PT has evaluated the patient PT/OT. 8. Deep vein thrombosis prophylaxis. Lovenox. PLAN: We will repeat labs in a.m., discussed with the patient regarding home health she agrees with plan. Anticipate discharge home tomorrow. Dictated by CECILIA Christian Tung Leone MD MY/MODL /[id number]
[2019-07-25] MEDS: ENOXAPARIN SOD INJ 40 MG/0.4 ML SYR SC SCH (18:24)
[2019-07-26 00:19] VITALS: BP 136/72
[2019-07-26] MEDS: HYDROCODONE/APAP 7.5MG-325MG 1 EA TAB PO PRN ×2 (02:15→12:14)
[2019-07-26 04:00] VITALS: BP 137/82
[2019-07-26] MEDS: TIZANIDINE HCL 4 MG TAB PO PRN (05:58)
[2019-07-26 06:02] LABS: ANION GAP 10.4 mmol/L (8-16); BLOOD UREA NITROGEN 7 mg/dL (7-26); BUN/CREATININE RATIO 10 (6-25); CALCIUM 7.7 mg/dL (8.4-10.2); CARBON DIOXIDE 23 mmol/L (22-29); CHLORIDE 110 mmol/L (98-107); CREATINE KINASE 1759 IU/L (29-168); EST GLOMERULAR FILTRATION RATE > 60 ML/MIN (60-); GLUCOSE 126 mg/dL (74-118); POTASSIUM 3.4 mmol/L (3.5-5.1); SODIUM 140 mmol/L (136-145)
[2019-07-26] MEDS: ALBUTEROL SULF 0.083% NEB SOLN 3 ML NEB NEB SCH ×2 (06:28→14:58)
[2019-07-26 08:30] VITALS: BP 137/82
[2019-07-26] MEDS: SUCRALFATE 1 GM TAB PO SCH (08:51)
[2019-07-26] MEDS: MELOXICAM 7.5 MG TAB PO SCH (08:52)
[2019-07-26 09:01] VITALS: BP 102/77
[2019-07-26] MEDS: ASCORBIC ACID 500 MG TAB PO SCH (09:23)
[2019-07-26] MEDS: DULOXETINE HCL 30 MG DELAYED RELEASE PO SCH (09:23)
[2019-07-26] MEDS: POTASSIUM CHLORIDE 10MEQ EA PO SCH (09:23)
--- NOTE | 2019-07-26 15:09 | Discharge Summary ---
PRIMARY CARE PHYSICIAN: Dr. Modesto Wright at [facility]. FINAL DISCHARGE DIAGNOSES: 1. Severe hypokalemia with muscular weakness and contraction. 2. Hemoconcentration. 3. Rhabdomyolysis. 4. History of anxiety and depression. 5. 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 6. History of irritable bowel syndrome. 7. Debility. CONSULTANTS: None. PROCEDURES: None. HISTORY: Per HPI. HOSPITAL COURSE: Ms. Panda is a 69-year-old female, who presented to the ER with complaints of increased weakness and contraction. She was noted to have severely low potassium of 1.5. She was started on aggressive replacement of potassium and was monitored on telemetry for arrhythmias. She was also noted to have rhabdomyolysis with normal kidney function. CK was 2635 increased as high as 4058. She was continued on IV fluids and now trending down. Her weakness and contraction resolved with potassium replacement. Potassium today is 3.4. She reports diarrhea, has improved once a day, she is advised to continue taking her daily supplement potassium and increase potassium rich foods like banana. She verbalizes understanding. Physical therapy had evaluated the patient and case management consulted for home health for physical therapy. She is advised to get her blood work done regularly to check her potassium levels. She is afebrile, vital signs stable. PHYSICAL EXAMINATION: VITAL SIGNS: Temperature is 97.9, pulse is 62, respirations 20, blood pressure 102/77, pulse ox is 97% on room air. GENERAL: No acute distress. HEENT: Normocephalic, atraumatic. LUNGS: Clear to auscultation. CARDIOVASCULAR: Regular rate and rhythm. GI: Soft and nontender. NEUROLOGIC: Alert, awake, and oriented x3. MUSCULOSKELETAL: Right AKA. PSYCH: Calm. DISCHARGE MEDICATIONS: Please see medication reconciliation list. FOLLOWUP: Follow up with PCP, Dr. Salvador at [facility]. TIME SPENT: Total time of discharge is 32 minutes. Dictated by CECILIA Christian Ashleyching Jere Leone MD MY/MODL /[id number] cc: Dr. Modesto Tee [facility]
== END 2019-07-26 15:00 | disposition home or self-care (01) | DRG 558 ==
LOC: ER 14:19 → ERHOLD 16:12 → MED/SURG 21:33
PROVIDERS: ADMIT Internal Medicine; ATTEND Internal Medicine
DX: M62.82 Rhabdomyolysis (principal); E87.6 Hypokalemia; Z11.59 Encounter for screening for other viral diseases; F41.9 Anxiety disorder, unspecified; F32.9 Major depressive disorder, single episode, unspecified; G54.6 Phantom limb syndrome with pain; R53.81 Other malaise; R79.89 Other specified abnormal findings of blood chemistry; G89.29 Other chronic pain; M54.9 Dorsalgia, unspecified
CPT/HCPCS: 36415; 70450; 80048; 80053; 81001; 82550; 82553; 83735; 84132; 84436; 84443; 84479; 84484; 85025; 85610; 85730; 87635; 93005; 94640; 97139; 99284; J1650; J3475; J3480; J7030; J7050

== ENCOUNTER 2021-02-08 14:45 | Emergency (ER) | payer MEDICARE ==
[~2021-02-08] VITALS: Ht 177.8 cm; Wt 72.6 kg
[~2021-02-08 14:45] MED LIST: ALENDRONATE; ALENDRONATE SOD70 MG PO; ALIVE WOMEN'S1 EAC1 PO; B COMPLEX1 EACH PO; BACLOFEN; BENZONATATE100 MG; CLONAZEPAM; CLONAZEPAM0.5 MG PO; COMBIVENT RESPIM4 GM; DULOXETINE HCL60 MG PO; ELDERBERRY PO; ERGOCAL62.5 MCG PO; FERROUS SULFAT325 MG PO; GABAPENTIN300 MG PO; HYDROCODON-ACE1 EA12 PO; K DUR10 MEQ; LEVOCETIRIZINE PO; MELOXICAM7.5 MG; NYSTATIN100000 UNI; OMEPRAZOLE PO; SUCRALFATE1 GM; TIZANIDINE HCL4 MG PO; ULTRAM 50MG50 MG PO; VIT; VITAMIN C 250250 MG PO
== END 2021-02-08 17:00 | disposition home or self-care (01) ==
LOC: ER 16:46
DX: R10.9 Unspecified abdominal pain (principal); I10 Essential (primary) hypertension; E11.9 Type 2 diabetes mellitus without complications; J44.9 Chronic obstructive pulmonary disease, unspecified; Z79.899 Other long term (current) drug therapy
CPT/HCPCS: 99282

== ENCOUNTER 2021-02-09 13:23 | Inpatient (IN) | payer MEDICARE ==
[~2021-02-09] VITALS: Ht 177.8 cm; Wt 72.6 kg
[2021-02-09 13:46] LABS: BASOPHILS # (AUTO) 0.1 (0.0-0.1); BASOPHILS % 0.8 % (0.0-1.0); EOSINOPHILS # (AUTO) 0.1 (0.0-0.4); HEMATOCRIT 48.9 % (34.2-44.1); HEMOGLOBIN 15.8 g/dL (12.0-16.0); LYMPHOCYTES # (AUTO) 2.2 (1.0-3.2); LYMPHOCYTES % 16.3 % (18.0-39.1); MEAN CORPUSCULAR HEMOGLOBIN 31.1 pg (28-32); MEAN CORPUSCULAR HGB CONC 32.3 g/dL (31-35); MEAN CORPUSCULAR VOLUME 96.3 fL (81-99); MONOCYTES # (AUTO) 1.1 (0.2-0.8); MONOCYTES % 8.3 % (4.4-11.3); NEUTROPHILS # (AUTO) 9.7 (2.1-6.9); NEUTROPHILS % 72.6 % (38.7-80.0); PLATELET COUNT 360 x10e3/uL (140-360); RED BLOOD COUNT 5.08 x10e6/uL (3.6-5.1); RED CELL DISTRIBUTION WIDTH 14.8 % (11.7-14.4)
[2021-02-09 14:09] LABS: ALBUMIN/GLOBULIN RATIO 1.1 (0.8-2.0); ANION GAP 17.1 mmol/L (8-16); CALCIUM 9.9 mg/dL (8.4-10.2); CREATININE, SERUM 1.17 mg/dL (0.57-1.11); POTASSIUM 4.1 mmol/L (3.5-5.1)
[2021-02-09 14:18] LABS: CREATINE KINASE 269 IU/L (29-168)
[2021-02-09 15:27] LABS: CLARITY,URINE SL CLOUDY (CLEAR); COLOR,URINE STRAW (YELLOW); LEUKOCYTE ESTERASE ,URINE NEGATIVE (NEGATIVE); NITRITE,URINE NEGATIVE (NEGATIVE)
[2021-02-09 15:28] LABS: KETONES,URINE NEGATIVE (NEGATIVE); PROTEIN,URINE DIPSTICK TRACE (NEGATIVE); URINE UROBILINOGEN 0.2 mg/dL (0.2 - 1)
[2021-02-09 15:33] LABS: BACTERIA,URINE MODERATE /HPF; EPITHELIAL CELLS,URINE MODERATE /LPF; TRANSITIONAL EPI CELLS,URINE FEW
[2021-02-09] MEDS ORDERED: CEFTRIAXONE 1 GM in SODIUM CHLORIDE 0.9% 50ML 50 ML IV ONE (17:30)
[2021-02-09] MEDS ORDERED: IOPAMIDOL 370 MG/ML 200 ML INFUS..BTL INJ ONE (17:41)
[2021-02-09] MEDS ORDERED: SODIUM CHLORIDE 0.9% 50ML 50 ML ONE (17:41)
[2021-02-09] MEDS: ONDANSETRON HCL INJ 2MG/ML 2ML 2 MG/ML VIAL IV PRN (19:00)
[2021-02-09] MEDS: Morphine 2mg Syringe 2 MG/ML SYR IV PRN (20:46)
[2021-02-09] MEDS: SODIUM CHLORIDE 0.9% 1000ML 1,000 ML IV SCH (20:55)
[2021-02-09 22:57] VITALS: BP 150/72
[2021-02-10] VITALS (8 sets, daily range): BP systolic 125–158; BP diastolic 48–93
[2021-02-10] MEDS ORDERED: BENZONATATE100 MG PO (00:18)
[2021-02-10] MEDS: Morphine 2mg Syringe 2 MG/ML SYR IV PRN ×2 (01:16→04:37)
[2021-02-10] MEDS: ONDANSETRON HCL INJ 2MG/ML 2ML 2 MG/ML VIAL IV PRN ×5 (03:12→17:39)
[2021-02-10] MEDS: SODIUM CHLORIDE 0.9% 1000ML 1,000 ML IV SCH (03:30)
[2021-02-10 05:19] LABS: BASOPHILS # (AUTO) 0.2 (0.0-0.1); BASOPHILS % 1.9 % (0.0-1.0); EOSINOPHILS # (AUTO) 0.2 (0.0-0.4); EOSINOPHILS % 1.9 % (0.0-6.0); HEMATOCRIT 49.8 % (34.2-44.1); HEMOGLOBIN 15.3 g/dL (12.0-16.0); LYMPHOCYTES # (AUTO) 1.4 (1.0-3.2); MEAN CORPUSCULAR HEMOGLOBIN 31.5 pg (28-32); MEAN CORPUSCULAR HGB CONC 30.7 g/dL (31-35); MEAN CORPUSCULAR VOLUME 102.7 fL (81-99); MONOCYTES # (AUTO) 1.1 (0.2-0.8); MONOCYTES % 9.5 % (4.4-11.3); NEUTROPHILS # (AUTO) 8.7 (2.1-6.9); NEUTROPHILS % 73.5 % (38.7-80.0); PLATELET COUNT 287 x10e3/uL (140-360); RED BLOOD COUNT 4.85 x10e6/uL (3.6-5.1); RED CELL DISTRIBUTION WIDTH 14.8 % (11.7-14.4)
[2021-02-10 05:34] LABS: ALBUMIN 3.6 g/dL (3.5-5.0); ALBUMIN/GLOBULIN RATIO 0.9 (0.8-2.0); CALCIUM 9.4 mg/dL (8.4-10.2); CREATININE, SERUM 1.03 mg/dL (0.57-1.11)
[2021-02-10] MEDS ORDERED: HYDROCODONE/APAP 5MG-325MG TAB PO PRN (10:30)
[2021-02-10] MEDS: Morphine 4mg Syringe 4 MG/ML INJ IV PRN ×4 (10:42→23:42)
[2021-02-10] MEDS: LACTATED RINGER'S 1,000 ML INJ SCH ×2 (13:07→23:41)
[2021-02-10] MEDS: CEFTRIAXONE 1 GM in SODIUM CHLORIDE 0.9% 50ML 50 ML IV SCH ×2 (17:08→17:39)
[2021-02-10] MEDS ORDERED: TIZANIDINE HCL 4 MG TAB PO PRN (19:30)
[2021-02-10] MEDS ORDERED: LORATADINE 10 MG TAB PO PRN (19:30)
[2021-02-10] MEDS ORDERED: CLONAZEPAM 0.5 MG TAB PO PRN (19:30)
[2021-02-10] MEDS: HYDROCODONE/APAP 7.5MG-325MG 1 EA TAB PO PRN (20:08)
[2021-02-10] MEDS: GABAPENTIN 300 MG CAP PO SCH (21:26)
[2021-02-10] MEDS: BENZONATATE 100 MG CAP PO SCH (21:26)
[2021-02-11] VITALS (8 sets, daily range): BP systolic 118–139; BP diastolic 56–72
[2021-02-11] MEDS: ONDANSETRON HCL INJ 2MG/ML 2ML 2 MG/ML VIAL IV PRN ×3 (04:11→12:23)
[2021-02-11] MEDS: Morphine 4mg Syringe 4 MG/ML INJ IV PRN ×4 (04:11→19:55)
[2021-02-11 05:04] LABS: BASOPHILS # (AUTO) 0.1 (0.0-0.1); BASOPHILS % 0.7 % (0.0-1.0); EOSINOPHILS # (AUTO) 0.2 (0.0-0.4); HEMOGLOBIN 15.2 g/dL (12.0-16.0); LYMPHOCYTES # (AUTO) 1.6 (1.0-3.2); LYMPHOCYTES % 10.7 % (18.0-39.1); MEAN CORPUSCULAR HEMOGLOBIN 31.3 pg (28-32); MEAN CORPUSCULAR VOLUME 94.8 fL (81-99); MONOCYTES # (AUTO) 1.6 (0.2-0.8); MONOCYTES % 10.5 % (4.4-11.3); NEUTROPHILS # (AUTO) 11.2 (2.1-6.9); NEUTROPHILS % 75.7 % (38.7-80.0); PLATELET COUNT 344 x10e3/uL (140-360); RED BLOOD COUNT 4.85 x10e6/uL (3.6-5.1); RED CELL DISTRIBUTION WIDTH 14.5 % (11.7-14.4)
[2021-02-11 05:30] LABS: ALBUMIN 3.6 g/dL (3.5-5.0); ANION GAP 16.7 mmol/L (8-16); BILIRUBIN,DIRECT 0.3 mg/dL (0.0-0.5); CALCIUM 9.2 mg/dL (8.4-10.2); CREATININE, SERUM 1.27 mg/dL (0.57-1.11); POTASSIUM 3.7 mmol/L (3.5-5.1)
[2021-02-11] MEDS: BENZONATATE 100 MG CAP PO SCH ×3 (09:00→21:00)
[2021-02-11] MEDS: DULOXETINE HCL 30 MG DELAYED RELEASE PO SCH (09:00)
[2021-02-11] MEDS: OMEPRAZOLE 20 MG CAP PO SCH (09:00)
[2021-02-11] MEDS: LACTATED RINGER'S 1,000 ML INJ SCH (12:24)
[2021-02-11] MEDS ORDERED: MIDAZOLAM HCL 2 MG/2 ML VIAL ONE (12:57)
[2021-02-11] MEDS ORDERED: FENTANYL CITRATE/PF 100MCG/2 ML INJ ONE (12:57)
[2021-02-11] MEDS ORDERED: DEXAMETHASONE SOD PHOS INJ 4 MG/ML SDV ONE (14:03)
[2021-02-11] MEDS ORDERED: SEVOFLURANE INHAL SOLN 250 ML PEN BTL ONE (14:03)
[2021-02-11] MEDS ORDERED: PROPOFOL IV EMULSION 10 MG/ML 20 ML VIAL ONE (14:03)
[2021-02-11] MEDS ORDERED: POVIDONE IODINE 0.05% 0.05 % ML PO ONE (14:03)
[2021-02-11] MEDS ORDERED: ONDANSETRON HCL INJ 2MG/ML 2ML 2 MG/ML VIAL ONE (14:03)
[2021-02-11] MEDS ORDERED: LIDOCAINE HCL 2% LOCAL INJ 5 ML SDV VIAL INJ ONE (14:03)
[2021-02-11] MEDS ORDERED: EPHEDRINE SULFATE INJ 50 MG/ML VIAL ONE (14:03)
[2021-02-11] MEDS ORDERED: B&O 60MG R/S 60 MG SUPP PR PRN (16:30)
[2021-02-11] MEDS ORDERED: ACETAMINOPHEN/CODEINE 300MG - 30MG TAB PO PRN (16:30)
[2021-02-11] MEDS ORDERED: PHENAZOPYRIDINE HCL 100 MG TAB PO PRN (16:30)
[2021-02-11] MEDS ORDERED: IOPAMIDOL 300MG/ML 50ML INFUS..BTL IV ONE (16:32)
[2021-02-11] MEDS ORDERED: BELLADONNA/OPIUM 30 MG SUPP RC ONE (16:33)
[2021-02-11] MEDS: IPRATROPIUM/ALBUTEROL SULFATE 4 GM INH INH SCH (19:20)
[2021-02-11] MEDS: GABAPENTIN 300 MG CAP PO SCH (21:00)
[2021-02-12] VITALS (8 sets, daily range): BP systolic 104–138; BP diastolic 20–74
[2021-02-12] MEDS: HYDROCODONE/APAP 7.5MG-325MG 1 EA TAB PO PRN ×2 (00:19→21:08)
[2021-02-12] MEDS: LACTATED RINGER'S 1,000 ML INJ SCH ×2 (03:58→15:35)
[2021-02-12 04:57] LABS: BASOPHILS # (AUTO) 0.1 (0.0-0.1); BASOPHILS % 0.5 % (0.0-1.0); EOSINOPHILS % 0.2 % (0.0-6.0); HEMOGLOBIN 13.9 g/dL (12.0-16.0); LYMPHOCYTES # (AUTO) 1.2 (1.0-3.2); LYMPHOCYTES % 8.9 % (18.0-39.1); MEAN CORPUSCULAR HEMOGLOBIN 31.2 pg (28-32); MEAN CORPUSCULAR HGB CONC 32.3 g/dL (31-35); MEAN CORPUSCULAR VOLUME 96.6 fL (81-99); MONOCYTES # (AUTO) 1.1 (0.2-0.8); MONOCYTES % 8.4 % (4.4-11.3); NEUTROPHILS # (AUTO) 10.3 (2.1-6.9); PLATELET COUNT 322 x10e3/uL (140-360); RED BLOOD COUNT 4.45 x10e6/uL (3.6-5.1); RED CELL DISTRIBUTION WIDTH 14.6 % (11.7-14.4)
[2021-02-12 05:23] LABS: ANION GAP 12.9 mmol/L (8-16); CALCIUM 9.5 mg/dL (8.4-10.2); POTASSIUM 3.9 mmol/L (3.5-5.1)
[2021-02-12] MEDS: OMEPRAZOLE 20 MG CAP PO SCH (08:43)
[2021-02-12] MEDS: DULOXETINE HCL 30 MG DELAYED RELEASE PO SCH (08:43)
[2021-02-12] MEDS: BENZONATATE 100 MG CAP PO SCH ×3 (08:43→21:07)
[2021-02-12] MEDS: CEFTRIAXONE 1 GM in SODIUM CHLORIDE 0.9% 50ML 50 ML IV SCH (16:52)
[2021-02-12] MEDS: IPRATROPIUM/ALBUTEROL SULFATE 4 GM INH INH SCH (19:32)
[2021-02-12] MEDS: GABAPENTIN 300 MG CAP PO SCH (21:07)
[2021-02-13] VITALS (8 sets, daily range): BP systolic 103–139; BP diastolic 50–76
[2021-02-13] MEDS: BENZONATATE 100 MG CAP PO SCH ×2 (08:19→14:52)
[2021-02-13] MEDS: DULOXETINE HCL 30 MG DELAYED RELEASE PO SCH (08:19)
[2021-02-13] MEDS: OMEPRAZOLE 20 MG CAP PO SCH (08:19)
[2021-02-13] MEDS: HYDROCODONE/APAP 7.5MG-325MG 1 EA TAB PO PRN (13:17)
== END 2021-02-13 17:59 | disposition home or self-care (01) | DRG 660 ==
LOC: ER 13:34 → ERHOLD 19:27 → MED/SURG2 20:01
PROVIDERS: ADMIT Internal Medicine; ATTEND Internal Medicine
PROC: 0TC78ZZ Extirpation of Matter from Left Ureter, Via Natural or Artificial Opening Endoscopic (ICD-10-PCS; principal; 2021-02-13)
PROC: 0T778DZ Dilation of Left Ureter with Intraluminal Device, Via Natural or Artificial Opening Endoscopic (ICD-10-PCS; 2021-02-13)
PROC: 0T768ZZ Dilation of Right Ureter, Via Natural or Artificial Opening Endoscopic (ICD-10-PCS; 2021-02-13)
PROC: BT141ZZ Fluoroscopy of Kidneys, Ureters and Bladder using Low Osmolar Contrast (ICD-10-PCS; 2021-02-13)
DX: N13.6 Pyonephrosis (principal); N20.2 Calculus of kidney with calculus of ureter; N17.9 Acute kidney failure, unspecified; R31.29 Other microscopic hematuria; J44.9 Chronic obstructive pulmonary disease, unspecified; F32.A Depression, unspecified; E11.9 Type 2 diabetes mellitus without complications; Z79.4 Long term (current) use of insulin; Z90.49 Acquired absence of other specified parts of digestive tract; Z89.612 Acquired absence of left leg above knee; E66.9 Obesity, unspecified; Z68.23 Body mass index [BMI] 23.0-23.9, adult; G89.4 Chronic pain syndrome; N81.10 Cystocele, unspecified; N81.6 Rectocele; N32.81 Overactive bladder; Z20.822 Contact with and (suspected) exposure to COVID-19
CPT/HCPCS: 36415; 74018; 74177; 74420; 80048; 80053; 80076; 81001; 82550; 82553; 82948; 83690; 83970; 84484; 84550; 85025; 87086; 93005; 94664; 94799; 96360; 99284; C1758; C2617; J0696; J1100; J2001; J2250; J2270; J2405; J3010; J7030; J7121; Q9967; U0002

== ENCOUNTER 2021-02-24 09:32 | Inpatient (IN) | payer MEDICARE ==
[~2021-02-24] VITALS: Ht 175.3 cm; Wt 102.5 kg
[~2021-02-24 09:32] MED LIST changes: +BENZONATATE100 MG PO
[2021-02-24] MEDS ORDERED: KETOROLAC TROMETHAMINE 30 MG/ML VIAL IV STA (11:20)
[2021-02-24] MEDS ORDERED: ONDANSETRON HCL INJ 2MG/ML 2ML 2 MG/ML VIAL IV STA (11:38)
[2021-02-24 11:46] LABS: BASOPHILS # (AUTO) 0.1 (0.0-0.1); BASOPHILS % 0.7 % (0.0-1.0); EOSINOPHILS # (AUTO) 0.1 (0.0-0.4); EOSINOPHILS % 0.5 % (0.0-6.0); HEMATOCRIT 51.1 % (34.2-44.1); HEMOGLOBIN 16.4 g/dL (12.0-16.0); LYMPHOCYTES # (AUTO) 1.1 (1.0-3.2); LYMPHOCYTES % 7.2 % (18.0-39.1); MEAN CORPUSCULAR HEMOGLOBIN 30.5 pg (28-32); MEAN CORPUSCULAR HGB CONC 32.1 g/dL (31-35); MEAN CORPUSCULAR VOLUME 95.2 fL (81-99); MONOCYTES # (AUTO) 0.6 (0.2-0.8); MONOCYTES % 4.1 % (4.4-11.3); NEUTROPHILS # (AUTO) 13.4 (2.1-6.9); NEUTROPHILS % 86.6 % (38.7-80.0); PLATELET COUNT 386 x10e3/uL (140-360); RED BLOOD COUNT 5.37 x10e6/uL (3.6-5.1); RED CELL DISTRIBUTION WIDTH 14.1 % (11.7-14.4)
[2021-02-24 11:54] LABS: CLARITY,URINE SL CLOUDY (CLEAR); COLOR,URINE BROWN (YELLOW)
[2021-02-24 11:55] LABS: KETONES,URINE 2+ (NEGATIVE); LEUKOCYTE ESTERASE ,URINE NEGATIVE (NEGATIVE); NITRITE,URINE POSITIVE (NEGATIVE); PROTEIN,URINE DIPSTICK >=300 (NEGATIVE); URINE UROBILINOGEN 1 mg/dL (0.2 - 1)
[2021-02-24 12:12] LABS: ALBUMIN 4.1 g/dL (3.5-5.0); ALBUMIN/GLOBULIN RATIO 1.1 (0.8-2.0); BACTERIA,URINE MANY /HPF; CALCIUM 10.1 mg/dL (8.4-10.2); CREATININE, SERUM 1.06 mg/dL (0.57-1.11); EPITHELIAL CELLS,URINE FEW /LPF; RBC,URINE >50 /HPF (0-5); WBC,URINE (MAN) 0-5 /HPF (0-5)
[2021-02-24] MEDS ORDERED: Morphine 4mg Syringe 4 MG/ML INJ IV ONE (12:30)
[2021-02-24] MEDS ORDERED: SODIUM CHLORIDE 0.9% 1000ML 1,000 ML IV STA (12:43)
[2021-02-24] MEDS ORDERED: Morphine 2mg Syringe 2 MG/ML SYR IV PRN (12:45)
[2021-02-24] MEDS: SODIUM CHLORIDE 0.9% 1000ML 1,000 ML IV SCH ×2 (13:12→21:48)
[2021-02-24] MEDS ORDERED: CLONAZEPAM 0.5 MG TAB PO PRN (13:15)
[2021-02-24] MEDS ORDERED: CEFTRIAXONE 1 GM in SODIUM CHLORIDE 0.9% 50ML 50 ML IV ONE (13:30)
[2021-02-24] MEDS ORDERED: TRAMADOL HCL 50 MG TAB PO PRN (14:30)
[2021-02-24] MEDS ORDERED: HYDROMORPHONE 1MG/1ML INJ IV PRN (14:30)
[2021-02-24] MEDS: GABAPENTIN 300 MG CAP PO SCH ×2 (14:36→21:48)
[2021-02-24] MEDS: ONDANSETRON HCL INJ 2MG/ML 2ML 2 MG/ML VIAL IV PRN ×2 (14:53→17:57)
[2021-02-24] MEDS: HYDROCODONE/APAP 7.5MG-325MG 1 EA TAB PO PRN ×2 (14:54→22:10)
[2021-02-24 16:42] VITALS: BP 163/70
[2021-02-24 17:28] VITALS: BP 163/70
[2021-02-24 20:29] VITALS: BP 102/53
[2021-02-24 21:30] VITALS: BP 102/53
[2021-02-25] VITALS (11 sets, daily range): BP systolic 101–138; BP diastolic 48–60
[2021-02-25] MEDS: SODIUM CHLORIDE 0.9% 1000ML 1,000 ML IV SCH ×2 (05:49→09:04)
[2021-02-25 06:11] LABS: BASOPHILS # (AUTO) 0.1 (0.0-0.1); BASOPHILS % 1.1 % (0.0-1.0); EOSINOPHILS # (AUTO) 0.3 (0.0-0.4); EOSINOPHILS % 2.7 % (0.0-6.0); HEMOGLOBIN 13.9 g/dL (12.0-16.0); LYMPHOCYTES # (AUTO) 2.5 (1.0-3.2); LYMPHOCYTES % 23.9 % (18.0-39.1); MEAN CORPUSCULAR HEMOGLOBIN 30.7 pg (28-32); MEAN CORPUSCULAR HGB CONC 31.6 g/dL (31-35); MEAN CORPUSCULAR VOLUME 97.1 fL (81-99); MONOCYTES % 9.6 % (4.4-11.3); NEUTROPHILS # (AUTO) 6.5 (2.1-6.9); NEUTROPHILS % 61.8 % (38.7-80.0); PLATELET COUNT 319 x10e3/uL (140-360); RED BLOOD COUNT 4.53 x10e6/uL (3.6-5.1); RED CELL DISTRIBUTION WIDTH 14.3 % (11.7-14.4)
[2021-02-25 06:32] LABS: ANION GAP 14.7 mmol/L (8-16); CALCIUM 8.4 mg/dL (8.4-10.2); CREATININE, SERUM 0.9 mg/dL (0.57-1.11); POTASSIUM 3.7 mmol/L (3.5-5.1)
[2021-02-25] MEDS: CEFTRIAXONE 1 GM in SODIUM CHLORIDE 0.9% 50ML 50 ML IV SCH (09:02)
[2021-02-25] MEDS: FERROUS SULFATE 325 MG TAB PO SCH (09:02)
[2021-02-25] MEDS: GABAPENTIN 300 MG CAP PO SCH ×3 (09:03→21:19)
[2021-02-25] MEDS ORDERED: LACTATED RINGER'S 1,000 ML INJ ONE (11:30)
[2021-02-25] MEDS: ENOXAPARIN SOD INJ 40 MG/0.4 ML SYR SC SCH (18:46)
[2021-02-26] VITALS (12 sets, daily range): BP systolic 125–145; BP diastolic 57–68
[2021-02-26] MEDS: CEFTRIAXONE 1 GM in SODIUM CHLORIDE 0.9% 50ML 50 ML IV SCH (09:04)
[2021-02-26] MEDS: FERROUS SULFATE 325 MG TAB PO SCH (09:05)
[2021-02-26] MEDS: GABAPENTIN 300 MG CAP PO SCH ×3 (09:05→21:35)
[2021-02-26] MEDS ORDERED: SODIUM CHLORIDE 0.9% 250ML 250 ML ONE (13:25)
[2021-02-26] MEDS: ENOXAPARIN SOD INJ 40 MG/0.4 ML SYR SC SCH (17:00)
[2021-02-27] VITALS (10 sets, daily range): BP systolic 120–137; BP diastolic 59–91
[2021-02-27] MEDS: FERROUS SULFATE 325 MG TAB PO SCH (09:53)
[2021-02-27] MEDS: CEFTRIAXONE 1 GM in SODIUM CHLORIDE 0.9% 50ML 50 ML IV SCH (09:53)
[2021-02-27] MEDS: GABAPENTIN 300 MG CAP PO SCH ×3 (09:53→23:07)
[2021-02-27] MEDS: OXYBUTYNIN CHLORIDE 5 MG TAB PO SCH ×2 (15:42→23:07)
[2021-02-27] MEDS: HYDROCODONE/APAP 7.5MG-325MG 1 EA TAB PO PRN (18:53)
[2021-02-28] VITALS (9 sets, daily range): BP systolic 103–124; BP diastolic 8–76
[2021-02-28] MEDS: ONDANSETRON HCL INJ 2MG/ML 2ML 2 MG/ML VIAL IV PRN (03:52)
[2021-02-28 06:45] LABS: ANION GAP 13.4 mmol/L (8-16); CALCIUM 9.1 mg/dL (8.4-10.2); CREATININE, SERUM 0.85 mg/dL (0.57-1.11); POTASSIUM 3.4 mmol/L (3.5-5.1)
[2021-02-28 07:17] LABS: BASOPHILS # (AUTO) 0.2 (0.0-0.1); BASOPHILS % 1.5 % (0.0-1.0); EOSINOPHILS # (AUTO) 0.6 (0.0-0.4); EOSINOPHILS % 6.1 % (0.0-6.0); HEMATOCRIT 45.1 % (34.2-44.1); HEMOGLOBIN 14.2 g/dL (12.0-16.0); LYMPHOCYTES # (AUTO) 2.4 (1.0-3.2); LYMPHOCYTES % 22.8 % (18.0-39.1); MEAN CORPUSCULAR HEMOGLOBIN 30.8 pg (28-32); MEAN CORPUSCULAR HGB CONC 31.5 g/dL (31-35); MEAN CORPUSCULAR VOLUME 97.8 fL (81-99); MONOCYTES # (AUTO) 0.8 (0.2-0.8); MONOCYTES % 7.7 % (4.4-11.3); NEUTROPHILS # (AUTO) 6.4 (2.1-6.9); NEUTROPHILS % 60.9 % (38.7-80.0); PLATELET COUNT 289 x10e3/uL (140-360); RED BLOOD COUNT 4.61 x10e6/uL (3.6-5.1); RED CELL DISTRIBUTION WIDTH 14.2 % (11.7-14.4)
[2021-02-28] MEDS: OXYBUTYNIN CHLORIDE 5 MG TAB PO SCH ×3 (09:00→21:53)
[2021-02-28] MEDS: GABAPENTIN 300 MG CAP PO SCH ×3 (09:00→21:53)
[2021-02-28] MEDS: FERROUS SULFATE 325 MG TAB PO SCH (09:00)
[2021-02-28] MEDS: CEFTRIAXONE 1 GM in SODIUM CHLORIDE 0.9% 50ML 50 ML IV SCH (10:00)
[2021-02-28] MEDS ORDERED: SEVOFLURANE INHAL SOLN 250 ML PEN BTL ONE (11:49)
[2021-02-28] MEDS ORDERED: POVIDONE IODINE 0.05% 0.05 % ML PO ONE (11:49)
[2021-02-28] MEDS ORDERED: LIDOCAINE HCL 2% LOCAL INJ 5 ML SDV VIAL INJ ONE (11:49)
[2021-02-28] MEDS ORDERED: GLYCOPYRROLATE INJ 0.2 MG/ML VIAL ONE (11:49)
[2021-02-28] MEDS ORDERED: ONDANSETRON HCL INJ 2MG/ML 2ML 2 MG/ML VIAL ONE (11:49)
[2021-02-28] MEDS ORDERED: PROPOFOL IV EMULSION 10 MG/ML 20 ML VIAL ONE (11:49)
[2021-02-28] MEDS ORDERED: DEXAMETHASONE SOD PHOS INJ 4 MG/ML SDV ONE (11:49)
[2021-02-28] MEDS ORDERED: FENTANYL CITRATE/PF 100MCG/2 ML INJ ONE (12:26)
[2021-02-28] MEDS ORDERED: IOPAMIDOL 300MG/ML 50ML INFUS..BTL IV ONE (12:58)
[2021-02-28] MEDS ORDERED: BELLADONNA/OPIUM 30 MG SUPP RC ONE (12:58)
[2021-02-28] MEDS ORDERED: B&O 60MG R/S 60 MG SUPP PR PRN (14:30)
[2021-02-28] MEDS ORDERED: PHENAZOPYRIDINE HCL 100 MG TAB PO PRN (14:30)
[2021-02-28] MEDS ORDERED: POTASSIUM CHLORIDE 20 MEQ TAB CR PO ONE (18:55)
[2021-02-28] MEDS: HYDROCODONE/APAP 7.5MG-325MG 1 EA TAB PO PRN (20:12)
[2021-02-28] MEDS ORDERED: LACTATED RINGER'S 1,000 ML INJ ONE (22:30)
[2021-02-28] MEDS: CEFEPIME 1 GM in SODIUM CHLORIDE 0.9% 50ML 50 ML IV SCH (23:21)
[2021-03-01] MEDS: HYDROCODONE/APAP 7.5MG-325MG 1 EA TAB PO PRN ×2 (00:39→17:28)
[2021-03-01 04:20] VITALS: BP 127/58
[2021-03-01 05:22] LABS: BASOPHILS # (AUTO) 0.1 (0.0-0.1); BASOPHILS % 0.5 % (0.0-1.0); EOSINOPHILS # (AUTO) 0.1 (0.0-0.4); EOSINOPHILS % 0.8 % (0.0-6.0); HEMATOCRIT 40.2 % (34.2-44.1); HEMOGLOBIN 13.1 g/dL (12.0-16.0); LYMPHOCYTES # (AUTO) 1.4 (1.0-3.2); LYMPHOCYTES % 10.6 % (18.0-39.1); MEAN CORPUSCULAR HEMOGLOBIN 30.8 pg (28-32); MEAN CORPUSCULAR HGB CONC 32.6 g/dL (31-35); MEAN CORPUSCULAR VOLUME 94.6 fL (81-99); MONOCYTES # (AUTO) 0.9 (0.2-0.8); MONOCYTES % 6.9 % (4.4-11.3); NEUTROPHILS # (AUTO) 10.7 (2.1-6.9); NEUTROPHILS % 80.2 % (38.7-80.0); PLATELET COUNT 301 x10e3/uL (140-360); RED BLOOD COUNT 4.25 x10e6/uL (3.6-5.1); RED CELL DISTRIBUTION WIDTH 14.3 % (11.7-14.4)
[2021-03-01 05:49] LABS: ANION GAP 16.1 mmol/L (8-16); CALCIUM 8.5 mg/dL (8.4-10.2); CREATININE, SERUM 1.02 mg/dL (0.57-1.11); POTASSIUM 4.1 mmol/L (3.5-5.1)
[2021-03-01] MEDS: CEFEPIME 1 GM in SODIUM CHLORIDE 0.9% 50ML 50 ML IV SCH ×2 (06:15→15:14)
[2021-03-01 08:09] VITALS: BP 110/57
[2021-03-01 08:10] VITALS: BP 110/57
[2021-03-01] MEDS: OXYBUTYNIN CHLORIDE 5 MG TAB PO SCH ×2 (08:16→15:15)
[2021-03-01] MEDS: GABAPENTIN 300 MG CAP PO SCH ×2 (08:17→15:15)
[2021-03-01] MEDS: FERROUS SULFATE 325 MG TAB PO SCH (08:18)
[2021-03-01] MEDS ORDERED: ONDANSETRON HCL 4 MG ORAL DISINTEGRATING TAB PO PRN (11:15)
[2021-03-01 11:41] VITALS: BP 129/59
[2021-03-01] MEDS ORDERED: BACTRIM DS TAB1 EACH PO (11:59)
[2021-03-01 16:30] VITALS: BP 120/79
== END 2021-03-01 19:48 | disposition home or self-care (01) | DRG 660 ==
LOC: ER 09:35 → ERHOLD 12:36 → MED/SURG 16:09
PROVIDERS: ADMIT Internal Medicine; ATTEND Internal Medicine
PROC: 0TC18ZZ Extirpation of Matter from Left Kidney, Via Natural or Artificial Opening Endoscopic (ICD-10-PCS; 2021-02-28)
PROC: 0TC08ZZ Extirpation of Matter from Right Kidney, Via Natural or Artificial Opening Endoscopic (ICD-10-PCS; 2021-02-28)
PROC: 0TP98DZ Removal of Intraluminal Device from Ureter, Via Natural or Artificial Opening Endoscopic (ICD-10-PCS; 2021-02-28)
PROC: 0T788DZ Dilation of Bilateral Ureters with Intraluminal Device, Via Natural or Artificial Opening Endoscopic (ICD-10-PCS; principal; 2021-02-28 13:00)
DX: T83.592A Infection and inflammatory reaction due to indwelling ureteral stent, initial encounter (principal); N39.0 Urinary tract infection, site not specified; E87.2 Acidosis; N13.6 Pyonephrosis; N20.0 Calculus of kidney; K58.9 Irritable bowel syndrome, unspecified; Z96.0 Presence of urogenital implants; Z87.442 Personal history of urinary calculi; Z89.611 Acquired absence of right leg above knee; Z98.84 Bariatric surgery status; Z90.49 Acquired absence of other specified parts of digestive tract; Z20.822 Contact with and (suspected) exposure to COVID-19; G89.4 Chronic pain syndrome; E66.9 Obesity, unspecified; Z68.33 Body mass index [BMI] 33.0-33.9, adult; N81.4 Uterovaginal prolapse, unspecified; N95.2 Postmenopausal atrophic vaginitis; N36.41 Hypermobility of urethra
CPT/HCPCS: 36415; 71045; 74176; 74420; 80048; 80053; 81001; 83605; 85025; 87040; 87086; 88300; 93005; 94799; 99284; C1758; C1766; C1769; C2617; J0692; J0696; J1100; J1170; J1650; J1885; J2001; J2270; J2405; J3010; J7030; J7050; J7121; U0002

== ENCOUNTER 2021-03-28 16:07 | Inpatient (IN) | payer MEDICARE, OTHER ==
[~2021-03-28] VITALS: Ht 175.3 cm; Wt 110.7 kg
[~2021-03-28 16:07] MED LIST changes: +BACTRIM DS TAB1 EACH PO
[2021-03-28] MEDS ORDERED: SODIUM CHLORIDE 0.9% 1000ML 1,000 ML IV ONE (16:30)
[2021-03-28] MEDS: ONDANSETRON HCL INJ 2MG/ML 2ML 2 MG/ML VIAL IV PRN (16:47)
[2021-03-28] MEDS: Morphine 4mg Syringe 4 MG/ML INJ IV PRN ×2 (16:48→21:08)
[2021-03-28 16:51] LABS: BASOPHILS % 0.2 % (0.0-1.0); EOSINOPHILS # (AUTO) 0.1 (0.0-0.4); EOSINOPHILS % 0.7 % (0.0-6.0); HEMATOCRIT 39.2 % (34.2-44.1); HEMOGLOBIN 13.2 g/dL (12.0-16.0); LYMPHOCYTES # (AUTO) 0.9 (1.0-3.2); LYMPHOCYTES % 4.7 % (18.0-39.1); MEAN CORPUSCULAR HEMOGLOBIN 30.1 pg (28-32); MEAN CORPUSCULAR HGB CONC 33.7 g/dL (31-35); MEAN CORPUSCULAR VOLUME 89.3 fL (81-99); MONOCYTES # (AUTO) 1.4 (0.2-0.8); MONOCYTES % 6.9 % (4.4-11.3); NEUTROPHILS # (AUTO) 17.2 (2.1-6.9); NEUTROPHILS % 86.9 % (38.7-80.0); PLATELET COUNT 373 x10e3/uL (140-360); RED BLOOD COUNT 4.39 x10e6/uL (3.6-5.1); RED CELL DISTRIBUTION WIDTH 14.6 % (11.7-14.4)
[2021-03-28 17:08] LABS: ALBUMIN 1.9 g/dL (3.5-5.0); ALBUMIN/GLOBULIN RATIO 0.4 (0.8-2.0); CALCIUM 8.8 mg/dL (8.4-10.2); CREATININE, SERUM 1.94 mg/dL (0.57-1.11)
[2021-03-28] MEDS ORDERED: ONDANSETRON HCL INJ 2MG/ML 2ML 2 MG/ML VIAL IV PRN (18:00)
[2021-03-28] MEDS ORDERED: Morphine 4mg Syringe 4 MG/ML INJ IV PRN (18:00)
[2021-03-28 18:25] LABS: CLARITY,URINE TURBID (CLEAR); COLOR,URINE YELLOW (YELLOW)
[2021-03-28 18:26] LABS: KETONES,URINE NEGATIVE (NEGATIVE); LEUKOCYTE ESTERASE ,URINE LARGE (NEGATIVE); NITRITE,URINE NEGATIVE (NEGATIVE); PROTEIN,URINE DIPSTICK 2+ (NEGATIVE)
[2021-03-28 18:27] LABS: URINE UROBILINOGEN 1 mg/dL (0.2 - 1)
[2021-03-28 18:37] LABS: BACTERIA,URINE FEW /HPF; EPITHELIAL CELLS,URINE RARE /LPF; WBC,URINE (MAN) >50 /HPF (0-5)
[2021-03-28] MEDS: SODIUM CHLORIDE 0.9% 1000ML 1,000 ML IV SCH ×3 (18:48→22:01)
[2021-03-28] MEDS ORDERED: ACETAMINOPHEN 325 MG TAB PO ONE (19:00)
[2021-03-28 20:20] VITALS: BP 104/49
[2021-03-29] VITALS (14 sets, daily range): BP systolic 104–127; BP diastolic 43–68
[2021-03-29] MEDS: Morphine 4mg Syringe 4 MG/ML INJ IV PRN ×2 (01:30→07:51)
[2021-03-29 05:21] LABS: ANION GAP 15.4 mmol/L (8-16); CALCIUM 7.5 mg/dL (8.4-10.2); CREATININE, SERUM 2.19 mg/dL (0.57-1.11); POTASSIUM 3.4 mmol/L (3.5-5.1)
[2021-03-29] MEDS: SODIUM CHLORIDE 0.9% 1000ML 1,000 ML IV SCH ×5 (05:45→20:17)
[2021-03-29] MEDS ORDERED: ERGOCALCIFEROL 1.25 MG PO SCH (11:00)
[2021-03-29] MEDS ORDERED: CLONAZEPAM 0.5 MG TAB PO PRN (11:00)
[2021-03-29] MEDS: CEFTRIAXONE 1 GM in SODIUM CHLORIDE 0.9% 50ML 50 ML IV SCH (11:14)
[2021-03-29] MEDS ORDERED: POTASSIUM CHLORIDE 10MEQ EA PO ONE (11:15)
[2021-03-29] MEDS: FOLIC ACID/CYANOCOB/PYRIDOXINE TAB PO SCH (16:48)
[2021-03-29] MEDS: OMEPRAZOLE 20 MG CAP PO SCH (17:17)
[2021-03-29] MEDS: ONDANSETRON HCL INJ 2MG/ML 2ML 2 MG/ML VIAL IV PRN (21:10)
[2021-03-30] VITALS (9 sets, daily range): BP systolic 110–145; BP diastolic 51–70
[2021-03-30] MEDS: SODIUM CHLORIDE 0.9% IV SCH ×4 (00:16→22:15)
[2021-03-30] MEDS: AMPICILLIN IV SCH ×4 (00:16→22:15)
[2021-03-30] MEDS: SODIUM CHLORIDE 0.9% 1000ML 1,000 ML IV SCH ×3 (01:29→10:00)
[2021-03-30 05:03] LABS: BASOPHILS # (AUTO) 0.1 (0.0-0.1); BASOPHILS % 0.4 % (0.0-1.0); EOSINOPHILS # (AUTO) 0.3 (0.0-0.4); HEMATOCRIT 35.5 % (34.2-44.1); HEMOGLOBIN 11.3 g/dL (12.0-16.0); LYMPHOCYTES # (AUTO) 0.9 (1.0-3.2); LYMPHOCYTES % 3.7 % (18.0-39.1); MEAN CORPUSCULAR HEMOGLOBIN 30.1 pg (28-32); MEAN CORPUSCULAR HGB CONC 31.8 g/dL (31-35); MEAN CORPUSCULAR VOLUME 94.4 fL (81-99); MONOCYTES # (AUTO) 1.4 (0.2-0.8); MONOCYTES % 5.7 % (4.4-11.3); NEUTROPHILS # (AUTO) 21.4 (2.1-6.9); NEUTROPHILS % 86.7 % (38.7-80.0); PLATELET COUNT 280 x10e3/uL (140-360); RED BLOOD COUNT 3.76 x10e6/uL (3.6-5.1); RED CELL DISTRIBUTION WIDTH 14.3 % (11.7-14.4)
[2021-03-30 05:39] LABS: ALBUMIN 1.5 g/dL (3.5-5.0); ALBUMIN/GLOBULIN RATIO 0.4 (0.8-2.0); ANION GAP 17.7 mmol/L (8-16); CALCIUM 7.3 mg/dL (8.4-10.2); CREATININE, SERUM 2.82 mg/dL (0.57-1.11); POTASSIUM 3.7 mmol/L (3.5-5.1)
[2021-03-30] MEDS: OMEPRAZOLE 20 MG CAP PO SCH (09:00)
[2021-03-30] MEDS: CEFTRIAXONE 1 GM in SODIUM CHLORIDE 0.9% 50ML 50 ML IV SCH (09:00)
[2021-03-30] MEDS: DULOXETINE HCL 30 MG DELAYED RELEASE PO SCH (09:00)
[2021-03-30] MEDS: FERROUS SULFATE 325 MG TAB PO SCH (09:00)
[2021-03-30] MEDS: HYDROCODONE/APAP 7.5MG-325MG 1 EA TAB PO PRN (10:44)
[2021-03-30] MEDS ORDERED: GENTAMICIN SULFATE 320 MG in SODIUM CHLORIDE 0.9% 100 ML 100 ML IV SCH (11:00)
[2021-03-30] MEDS ORDERED: B&O 60MG R/S 60 MG SUPP PR ONE (11:36)
[2021-03-30] MEDS ORDERED: IOPAMIDOL 300MG/ML 50ML INFUS..BTL IV ONE (11:36)
[2021-03-30] MEDS ORDERED: SODIUM BICARBONATE 8.4% 150 ML in DEXTROSE 5% 1,000 ML IV SCH ×2 (12:00→14:30)
[2021-03-30] MEDS ORDERED: POVIDONE IODINE 0.05% 0.05 % ML PO ONE (12:07)
[2021-03-30] MEDS ORDERED: ONDANSETRON HCL INJ 2MG/ML 2ML 2 MG/ML VIAL ONE (12:07)
[2021-03-30] MEDS ORDERED: DEXAMETHASONE SOD PHOS INJ 4 MG/ML SDV ONE (12:07)
[2021-03-30] MEDS ORDERED: SEVOFLURANE INHAL SOLN 250 ML PEN BTL ONE (12:07)
[2021-03-30] MEDS ORDERED: LIDOCAINE HCL 2% LOCAL INJ 5 ML SDV VIAL INJ ONE (12:07)
[2021-03-30] MEDS ORDERED: PROPOFOL IV EMULSION 10 MG/ML 20 ML VIAL ONE (12:07)
[2021-03-30] MEDS ORDERED: PHENYLEPHRINE HCL 1% 10 MG/ML VIAL ONE (12:07)
[2021-03-30] MEDS ORDERED: MIDAZOLAM HCL 2 MG/2 ML VIAL ONE (12:24)
[2021-03-30] MEDS ORDERED: B&O 60MG R/S 60 MG SUPP PR PRN (13:00)
[2021-03-30 16:35] LABS: ABG HCO3 18 mmol/L (22-26); ABG PCO2 34 mmHg (35-45); ABG PH 7.33 (7.35-7.45); ABG PO2 63 mmHg (80-105); ABG TCO2 19
[2021-03-30] MEDS: FOLIC ACID/CYANOCOB/PYRIDOXINE TAB PO SCH (17:44)
[2021-03-30] MEDS ORDERED: CALCIUM CARBONATE 500 MG CHEWABLE TABS PO PRN (22:45)
[2021-03-30] MEDS: LACTATED RINGER'S 1,000 ML INJ SCH (23:01)
[2021-03-31] VITALS (7 sets, daily range): BP systolic 108–134; BP diastolic 54–70
[2021-03-31] MEDS: SODIUM CHLORIDE 0.9% IV SCH ×3 (05:18→21:37)
[2021-03-31] MEDS: AMPICILLIN IV SCH ×3 (05:18→21:37)
[2021-03-31 06:08] LABS: ANION GAP 15.3 mmol/L (8-16); CREATININE, SERUM 2.33 mg/dL (0.57-1.11); POTASSIUM 3.3 mmol/L (3.5-5.1)
[2021-03-31 06:10] LABS: CALCIUM 6.9 mg/dL (8.4-10.2)
[2021-03-31] MEDS ORDERED: CALCIUM GLUC 1 G/50 ML NACL 50 ML IV ONE (07:00)
[2021-03-31 07:17] LABS: BASOPHILS # (AUTO) 0.2 (0.0-0.1); BASOPHILS % 0.8 % (0.0-1.0); EOSINOPHILS # (AUTO) 0.3 (0.0-0.4); EOSINOPHILS % 1.4 % (0.0-6.0); HEMATOCRIT 36.9 % (34.2-44.1); HEMOGLOBIN 11.9 g/dL (12.0-16.0); LYMPHOCYTES # (AUTO) 0.9 (1.0-3.2); LYMPHOCYTES % 4.2 % (18.0-39.1); MEAN CORPUSCULAR HEMOGLOBIN 29.8 pg (28-32); MEAN CORPUSCULAR HGB CONC 32.2 g/dL (31-35); MEAN CORPUSCULAR VOLUME 92.5 fL (81-99); MONOCYTES % 4.9 % (4.4-11.3); NEUTROPHILS # (AUTO) 17.5 (2.1-6.9); PLATELET COUNT 290 x10e3/uL (140-360); RED BLOOD COUNT 3.99 x10e6/uL (3.6-5.1); RED CELL DISTRIBUTION WIDTH 14.3 % (11.7-14.4)
[2021-03-31] MEDS: LACTATED RINGER'S 1,000 ML INJ SCH ×2 (07:30→15:30)
[2021-03-31] MEDS: FLUCONAZOLE 100 MG/NS 50 ML 50 ML IV SCH (08:00)
[2021-03-31] MEDS: DULOXETINE HCL 30 MG DELAYED RELEASE PO SCH (09:00)
[2021-03-31] MEDS: OMEPRAZOLE 20 MG CAP PO SCH (09:00)
[2021-03-31] MEDS: FERROUS SULFATE 325 MG TAB PO SCH (09:00)
[2021-03-31] MEDS ORDERED: POTASSIUM CHLORIDE 10MEQ EA PO ONE (12:00)
[2021-03-31] MEDS ORDERED: CALCIUM CHLORIDE 13.6 MEQ in SODIUM CHLORIDE 0.9% 100 ML 100 ML IV ONE (12:00)
[2021-03-31] MEDS ORDERED: ONDANSETRON HCL 4 MG ORAL DISINTEGRATING TAB PO PRN (14:15)
[2021-03-31] MEDS: CALCIUM CARBONATE 500 MG CHEWABLE TABS PO SCH ×2 (15:00→21:37)
[2021-03-31] MEDS: LACTOBACILLUS ACIDOPHILUS CAPSULE PO SCH ×2 (15:00→21:37)
[2021-03-31] MEDS: FOLIC ACID/CYANOCOB/PYRIDOXINE TAB PO SCH (17:00)
[2021-04-01] VITALS (10 sets, daily range): BP systolic 100–132; BP diastolic 43–64
[2021-04-01] MEDS: HYDROCODONE/APAP 7.5MG-325MG 1 EA TAB PO PRN ×2 (01:52→13:20)
[2021-04-01] MEDS: LACTATED RINGER'S 1,000 ML INJ SCH ×2 (01:57→08:34)
[2021-04-01 05:02] LABS: BASOPHILS # (AUTO) 0.1 (0.0-0.1); BASOPHILS % 0.8 % (0.0-1.0); EOSINOPHILS # (AUTO) 0.4 (0.0-0.4); HEMATOCRIT 32.4 % (34.2-44.1); HEMOGLOBIN 10.8 g/dL (12.0-16.0); LYMPHOCYTES # (AUTO) 1.4 (1.0-3.2); LYMPHOCYTES % 9.5 % (18.0-39.1); MEAN CORPUSCULAR HEMOGLOBIN 29.6 pg (28-32); MEAN CORPUSCULAR HGB CONC 33.3 g/dL (31-35); MEAN CORPUSCULAR VOLUME 88.8 fL (81-99); MONOCYTES # (AUTO) 1.1 (0.2-0.8); MONOCYTES % 7.6 % (4.4-11.3); NEUTROPHILS # (AUTO) 9.4 (2.1-6.9); NEUTROPHILS % 66.2 % (38.7-80.0); PLATELET COUNT 319 x10e3/uL (140-360); RED BLOOD COUNT 3.65 x10e6/uL (3.6-5.1); RED CELL DISTRIBUTION WIDTH 14.1 % (11.7-14.4)
[2021-04-01] MEDS: SODIUM CHLORIDE 0.9% IV SCH ×3 (05:37→22:45)
[2021-04-01] MEDS: AMPICILLIN IV SCH ×3 (05:37→22:45)
[2021-04-01 05:46] LABS: CALCIUM 7.6 mg/dL (8.4-10.2); CREATININE, SERUM 1.91 mg/dL (0.57-1.11)
[2021-04-01 08:22] LABS: BAND NEUTROPHILS % (MANUAL) 4 %; EOSINOPHILS % (MANUAL) 8 % (0-7); LYMPHOCYTES % (MANUAL) 2 % (19-48); METAMYELOCYTES % (MANUAL) 1 % (0-0); MONOCYTES % (MANUAL) 7 % (3.4-9.0); MYELOCYTES % (MANUAL) 3 % (0-0); NEUTROPHILS % (MANUAL) 74 % (40-74)
[2021-04-01 08:23] LABS: PLATELET ESTIMATE ADEQUATE; PLATELET MORPHOLOGY COMMENT NORMAL; RBC MORPHOLOGY COMMENT NORMAL
[2021-04-01] MEDS: DULOXETINE HCL 30 MG DELAYED RELEASE PO SCH (08:35)
[2021-04-01] MEDS: LACTOBACILLUS ACIDOPHILUS CAPSULE PO SCH ×3 (08:35→20:43)
[2021-04-01] MEDS: FERROUS SULFATE 325 MG TAB PO SCH (08:35)
[2021-04-01] MEDS: PANTOPRAZOLE SOD 40 MG TABEC PO SCH (08:35)
[2021-04-01] MEDS: CALCIUM CARBONATE 500 MG CHEWABLE TABS PO SCH ×3 (08:35→20:43)
[2021-04-01] MEDS: FLUCONAZOLE 100 MG/NS 50 ML 50 ML IV SCH (10:29)
[2021-04-01] MEDS ORDERED: POTASSIUM CHLORIDE 10MEQ EA PO ONE (13:00)
[2021-04-01] MEDS ORDERED: POTASSIUM CHLORIDE 20 MEQ TAB CR PO ONE (15:30)
[2021-04-01] MEDS: FOLIC ACID/CYANOCOB/PYRIDOXINE TAB PO SCH (16:41)
[2021-04-01] MEDS: SODIUM CHLORIDE 0.9% 1000ML 1,000 ML IV SCH (16:41)
[2021-04-01] MEDS ORDERED: MAGNESIUM SULFATE 2GM/50ML 50 ML IV ONE ×2 (18:00→20:00)
[2021-04-02] VITALS (7 sets, daily range): BP systolic 105–126; BP diastolic 43–69
[2021-04-02] MEDS: SODIUM CHLORIDE 0.9% 1000ML 1,000 ML IV SCH ×2 (01:30→11:41)
[2021-04-02] MEDS: HYDROCODONE/APAP 7.5MG-325MG 1 EA TAB PO PRN ×2 (03:45→20:30)
[2021-04-02 06:01] LABS: BASOPHILS % 0.2 % (0.0-1.0); EOSINOPHILS # (AUTO) 0.4 (0.0-0.4); EOSINOPHILS % 2.7 % (0.0-6.0); HEMATOCRIT 35.3 % (34.2-44.1); HEMOGLOBIN 11.8 g/dL (12.0-16.0); LYMPHOCYTES # (AUTO) 1.6 (1.0-3.2); LYMPHOCYTES % 9.8 % (18.0-39.1); MEAN CORPUSCULAR HEMOGLOBIN 29.9 pg (28-32); MEAN CORPUSCULAR HGB CONC 33.4 g/dL (31-35); MEAN CORPUSCULAR VOLUME 89.6 fL (81-99); MONOCYTES # (AUTO) 1.2 (0.2-0.8); MONOCYTES % 7.1 % (4.4-11.3); NEUTROPHILS # (AUTO) 10.9 (2.1-6.9); NEUTROPHILS % 66.3 % (38.7-80.0); PLATELET COUNT 379 x10e3/uL (140-360); RED BLOOD COUNT 3.94 x10e6/uL (3.6-5.1); RED CELL DISTRIBUTION WIDTH 14.2 % (11.7-14.4)
[2021-04-02] MEDS: SODIUM CHLORIDE 0.9% IV SCH ×3 (06:06→21:11)
[2021-04-02] MEDS: AMPICILLIN IV SCH ×3 (06:06→21:11)
[2021-04-02 06:27] LABS: ALBUMIN 1.5 g/dL (3.5-5.0); ALBUMIN/GLOBULIN RATIO 0.4 (0.8-2.0); ANION GAP 14.5 mmol/L (8-16); CALCIUM 7.2 mg/dL (8.4-10.2); CREATININE, SERUM 1.57 mg/dL (0.57-1.11); POTASSIUM 3.5 mmol/L (3.5-5.1)
[2021-04-02] MEDS: FERROUS SULFATE 325 MG TAB PO SCH (09:07)
[2021-04-02] MEDS: PANTOPRAZOLE SOD 40 MG TABEC PO SCH (09:07)
[2021-04-02] MEDS: FLUCONAZOLE 100 MG/NS 50 ML 50 ML IV SCH (09:07)
[2021-04-02] MEDS: LACTOBACILLUS ACIDOPHILUS CAPSULE PO SCH ×3 (09:07→20:22)
[2021-04-02] MEDS: DULOXETINE HCL 30 MG DELAYED RELEASE PO SCH (09:07)
[2021-04-02] MEDS: CALCIUM CARBONATE 500 MG CHEWABLE TABS PO SCH ×3 (09:07→20:22)
[2021-04-02 11:09] LABS: BAND NEUTROPHILS % (MANUAL) 3 %; EOSINOPHILS % (MANUAL) 3 % (0-7); LYMPHOCYTES % (MANUAL) 3 % (19-48); METAMYELOCYTES % (MANUAL) 2 % (0-0); MONOCYTES % (MANUAL) 4 % (3.4-9.0); MYELOCYTES % (MANUAL) 6 % (0-0); NEUTROPHILS % (MANUAL) 76 % (40-74); PLATELET ESTIMATE ADEQUATE; PROMYELOCYTES % (MANUAL) 1 % (0-0)
[2021-04-02 11:10] LABS: PLATELET MORPHOLOGY COMMENT FEW LARGE; RBC MORPHOLOGY COMMENT NORMAL
[2021-04-02] MEDS ORDERED: POTASSIUM CHLORIDE 20 MEQ TAB CR PO ONE (15:00)
[2021-04-02] MEDS: FOLIC ACID/CYANOCOB/PYRIDOXINE TAB PO SCH (16:35)
[2021-04-02] MEDS: VANCOMYCIN 250MG/5ML ORAL SOLN PO SCH ×2 (17:10→23:47)
[2021-04-03] VITALS (8 sets, daily range): BP systolic 102–125; BP diastolic 51–69
[2021-04-03] MEDS: VANCOMYCIN 250MG/5ML ORAL SOLN PO SCH (05:58)
[2021-04-03] MEDS: SODIUM CHLORIDE 0.9% IV SCH (05:58)
[2021-04-03] MEDS: AMPICILLIN IV SCH (05:58)
[2021-04-03] MEDS: PANTOPRAZOLE SOD 40 MG TABEC PO SCH (07:30)
[2021-04-03] MEDS: FLUCONAZOLE 100 MG/NS 50 ML 50 ML IV SCH (08:00)
[2021-04-03] MEDS: DULOXETINE HCL 30 MG DELAYED RELEASE PO SCH (09:00)
[2021-04-03] MEDS: CALCIUM CARBONATE 500 MG CHEWABLE TABS PO SCH ×3 (09:00→20:54)
[2021-04-03] MEDS: LACTOBACILLUS ACIDOPHILUS CAPSULE PO SCH ×3 (09:00→20:49)
[2021-04-03] MEDS: FERROUS SULFATE 325 MG TAB PO SCH (09:00)
[2021-04-03 09:11] LABS: BASOPHILS # (AUTO) 0.1 (0.0-0.1); BASOPHILS % 0.4 % (0.0-1.0); EOSINOPHILS # (AUTO) 0.6 (0.0-0.4); EOSINOPHILS % 2.9 % (0.0-6.0); HEMATOCRIT 33.6 % (34.2-44.1); HEMOGLOBIN 11.5 g/dL (12.0-16.0); LYMPHOCYTES # (AUTO) 2.1 (1.0-3.2); LYMPHOCYTES % 11.2 % (18.0-39.1); MEAN CORPUSCULAR HEMOGLOBIN 29.9 pg (28-32); MEAN CORPUSCULAR HGB CONC 34.2 g/dL (31-35); MEAN CORPUSCULAR VOLUME 87.3 fL (81-99); MONOCYTES # (AUTO) 1.1 (0.2-0.8); MONOCYTES % 5.9 % (4.4-11.3); NEUTROPHILS # (AUTO) 11.9 (2.1-6.9); NEUTROPHILS % 63.7 % (38.7-80.0); PLATELET COUNT 424 x10e3/uL (140-360); RED BLOOD COUNT 3.85 x10e6/uL (3.6-5.1); RED CELL DISTRIBUTION WIDTH 14.3 % (11.7-14.4)
[2021-04-03 09:27] LABS: ALBUMIN 1.4 g/dL (3.5-5.0); ALBUMIN/GLOBULIN RATIO 0.4 (0.8-2.0); ANION GAP 13.1 mmol/L (8-16); CALCIUM 7.5 mg/dL (8.4-10.2); CREATININE, SERUM 1.28 mg/dL (0.57-1.11); POTASSIUM 3.1 mmol/L (3.5-5.1)
[2021-04-03] MEDS: HYDROCODONE/APAP 7.5MG-325MG 1 EA TAB PO PRN ×2 (09:43→21:07)
[2021-04-03] MEDS: VANCOMYCIN HCL 125 MG CAPSULE PO SCH ×2 (12:00→17:01)
[2021-04-03] MEDS ORDERED: POTASSIUM CHLORIDE 10MEQ EA PO ONE (12:30)
[2021-04-03] MEDS: FOLIC ACID/CYANOCOB/PYRIDOXINE TAB PO SCH (17:00)
[2021-04-04] VITALS (8 sets, daily range): BP systolic 106–130; BP diastolic 52–68
[2021-04-04] MEDS: VANCOMYCIN HCL 125 MG CAPSULE PO SCH ×4 (00:10→17:14)
[2021-04-04 05:22] LABS: BASOPHILS # (AUTO) 0.1 (0.0-0.1); BASOPHILS % 0.4 % (0.0-1.0); EOSINOPHILS # (AUTO) 0.6 (0.0-0.4); EOSINOPHILS % 3.3 % (0.0-6.0); HEMATOCRIT 35.1 % (34.2-44.1); HEMOGLOBIN 11.9 g/dL (12.0-16.0); LYMPHOCYTES # (AUTO) 2.7 (1.0-3.2); MEAN CORPUSCULAR HEMOGLOBIN 30.4 pg (28-32); MEAN CORPUSCULAR HGB CONC 33.9 g/dL (31-35); MEAN CORPUSCULAR VOLUME 89.5 fL (81-99); MONOCYTES # (AUTO) 1.1 (0.2-0.8); MONOCYTES % 6.3 % (4.4-11.3); NEUTROPHILS # (AUTO) 10.3 (2.1-6.9); NEUTROPHILS % 57.8 % (38.7-80.0); PLATELET COUNT 408 x10e3/uL (140-360); RED BLOOD COUNT 3.92 x10e6/uL (3.6-5.1); RED CELL DISTRIBUTION WIDTH 14.4 % (11.7-14.4)
[2021-04-04 05:39] LABS: ANION GAP 14.1 mmol/L (8-16); CALCIUM 7.1 mg/dL (8.4-10.2); CREATININE, SERUM 1.2 mg/dL (0.57-1.11); POTASSIUM 3.1 mmol/L (3.5-5.1)
[2021-04-04] MEDS: HYDROCODONE/APAP 7.5MG-325MG 1 EA TAB PO PRN ×2 (06:36→21:08)
[2021-04-04] MEDS: PANTOPRAZOLE SOD 40 MG TABEC PO SCH (06:36)
[2021-04-04 07:09] LABS: BAND NEUTROPHILS % (MANUAL) 4 %; EOSINOPHILS % (MANUAL) 2 % (0-7); LYMPHOCYTES % (MANUAL) 14 % (19-48); METAMYELOCYTES % (MANUAL) 1 % (0-0); MONOCYTES % (MANUAL) 5 % (3.4-9.0); MYELOCYTES % (MANUAL) 12 % (0-0); NEUTROPHILS % (MANUAL) 62 % (40-74); PLATELET ESTIMATE ADEQUATE; RBC MORPHOLOGY COMMENT NORMAL
[2021-04-04 07:10] LABS: PLATELET MORPHOLOGY COMMENT FEW GIANT
[2021-04-04] MEDS: FLUCONAZOLE 100 MG/NS 50 ML 50 ML IV SCH (08:00)
[2021-04-04] MEDS: DULOXETINE HCL 30 MG DELAYED RELEASE PO SCH (09:37)
[2021-04-04] MEDS: FERROUS SULFATE 325 MG TAB PO SCH (09:37)
[2021-04-04] MEDS: LACTOBACILLUS ACIDOPHILUS CAPSULE PO SCH (09:37)
[2021-04-04] MEDS: CALCIUM CARBONATE 500 MG CHEWABLE TABS PO SCH ×3 (09:38→20:54)
[2021-04-04] MEDS ORDERED: POTASSIUM CHLORIDE 20MEQ/100ML 200 ML IV ONE (10:30)
[2021-04-04] MEDS: FOLIC ACID/CYANOCOB/PYRIDOXINE TAB PO SCH (17:14)
[2021-04-04] MEDS: CHOLESTYRAMINE 4 GM PACKET PO SCH ×2 (18:04→21:07)
[2021-04-05] VITALS (8 sets, daily range): BP systolic 111–124; BP diastolic 48–60
[2021-04-05] MEDS: VANCOMYCIN HCL 125 MG CAPSULE PO SCH ×5 (00:58→23:48)
[2021-04-05] MEDS: PANTOPRAZOLE SOD 40 MG TABEC PO SCH (09:23)
[2021-04-05] MEDS: FERROUS SULFATE 325 MG TAB PO SCH (09:23)
[2021-04-05] MEDS: DULOXETINE HCL 30 MG DELAYED RELEASE PO SCH (09:23)
[2021-04-05] MEDS: CALCIUM CARBONATE 500 MG CHEWABLE TABS PO SCH ×3 (09:29→21:00)
[2021-04-05] MEDS: CHOLESTYRAMINE 4 GM PACKET PO SCH ×2 (09:29→17:03)
[2021-04-05] MEDS: FLUCONAZOLE 100 MG/NS 50 ML 50 ML IV SCH (09:38)
[2021-04-05] MEDS ORDERED: POTASSIUM CHLORIDE 20 MEQ TAB CR PO NR (10:00)
[2021-04-05] MEDS ORDERED: MAGNESIUM SULFATE 2GM/50ML 50 ML IV ONE (10:00)
[2021-04-05] MEDS: FOLIC ACID/CYANOCOB/PYRIDOXINE TAB PO SCH (17:03)
[2021-04-05] MEDS ORDERED: CHOLESTYRAMINE 4 GM PACKET PO PRN (19:15)
[2021-04-06] VITALS (8 sets, daily range): BP systolic 95–112; BP diastolic 53–67
[2021-04-06 05:48] LABS: BASOPHILS # (AUTO) 0.1 (0.0-0.1); BASOPHILS % 0.5 % (0.0-1.0); EOSINOPHILS # (AUTO) 0.6 (0.0-0.4); EOSINOPHILS % 3.2 % (0.0-6.0); HEMATOCRIT 35.8 % (34.2-44.1); HEMOGLOBIN 12.3 g/dL (12.0-16.0); LYMPHOCYTES # (AUTO) 2.8 (1.0-3.2); LYMPHOCYTES % 15.6 % (18.0-39.1); MEAN CORPUSCULAR HEMOGLOBIN 30.1 pg (28-32); MEAN CORPUSCULAR HGB CONC 34.4 g/dL (31-35); MEAN CORPUSCULAR VOLUME 87.5 fL (81-99); MONOCYTES # (AUTO) 0.9 (0.2-0.8); MONOCYTES % 5.1 % (4.4-11.3); NEUTROPHILS # (AUTO) 10.8 (2.1-6.9); NEUTROPHILS % 61.3 % (38.7-80.0); PLATELET COUNT 466 x10e3/uL (140-360); RED BLOOD COUNT 4.09 x10e6/uL (3.6-5.1); RED CELL DISTRIBUTION WIDTH 14.5 % (11.7-14.4)
[2021-04-06] MEDS: VANCOMYCIN HCL 125 MG CAPSULE PO SCH ×3 (05:51→17:41)
[2021-04-06 06:21] LABS: ANION GAP 14.1 mmol/L (8-16); CALCIUM 7.3 mg/dL (8.4-10.2); CREATININE, SERUM 0.99 mg/dL (0.57-1.11); MAGNESIUM 1.4 MG/DL (1.3-2.1); POTASSIUM 3.1 mmol/L (3.5-5.1)
[2021-04-06] MEDS: CALCIUM CARBONATE 500 MG CHEWABLE TABS PO SCH ×4 (09:00→21:48)
[2021-04-06] MEDS ORDERED: MAGNESIUM SULFATE 2GM/50ML 50 ML IV ONE (10:30)
[2021-04-06] MEDS ORDERED: POTASSIUM CHLORIDE 20 MEQ TAB CR PO ONE ×2 (10:30→15:30)
[2021-04-06] MEDS: PANTOPRAZOLE SOD 40 MG TABEC PO SCH (10:35)
[2021-04-06] MEDS: FERROUS SULFATE 325 MG TAB PO SCH (10:35)
[2021-04-06] MEDS: DULOXETINE HCL 30 MG DELAYED RELEASE PO SCH (10:35)
[2021-04-06] MEDS: FOLIC ACID/CYANOCOB/PYRIDOXINE TAB PO SCH (17:41)
[2021-04-06] MEDS: HYDROCODONE/APAP 7.5MG-325MG 1 EA TAB PO PRN (22:03)
[2021-04-07 00:01] VITALS: BP 106/56
[2021-04-07] MEDS: VANCOMYCIN HCL 125 MG CAPSULE PO SCH ×4 (00:39→16:59)
[2021-04-07 05:03] LABS: BASOPHILS # (AUTO) 0.3 (0.0-0.1); BASOPHILS % 1.7 % (0.0-1.0); EOSINOPHILS # (AUTO) 0.5 (0.0-0.4); EOSINOPHILS % 3.1 % (0.0-6.0); HEMATOCRIT 38.2 % (34.2-44.1); HEMOGLOBIN 12.6 g/dL (12.0-16.0); LYMPHOCYTES # (AUTO) 2.8 (1.0-3.2); LYMPHOCYTES % 17.5 % (18.0-39.1); MEAN CORPUSCULAR HEMOGLOBIN 29.9 pg (28-32); MEAN CORPUSCULAR VOLUME 90.5 fL (81-99); MONOCYTES % 5.9 % (4.4-11.3); NEUTROPHILS # (AUTO) 9.5 (2.1-6.9); NEUTROPHILS % 59.2 % (38.7-80.0); PLATELET COUNT 470 x10e3/uL (140-360); RED BLOOD COUNT 4.22 x10e6/uL (3.6-5.1); RED CELL DISTRIBUTION WIDTH 14.7 % (11.7-14.4)
[2021-04-07 05:14] VITALS: BP 117/58
[2021-04-07 05:24] LABS: CALCIUM 7.6 mg/dL (8.4-10.2); CREATININE, SERUM 1.02 mg/dL (0.57-1.11); MAGNESIUM 1.9 MG/DL (1.3-2.1)
[2021-04-07 07:35] VITALS: BP 121/54
[2021-04-07 07:38] VITALS: BP 121/54
[2021-04-07] MEDS: CALCIUM CARBONATE 500 MG CHEWABLE TABS PO SCH ×3 (09:00→20:10)
[2021-04-07] MEDS: FERROUS SULFATE 325 MG TAB PO SCH (09:37)
[2021-04-07] MEDS: PANTOPRAZOLE SOD 40 MG TABEC PO SCH (09:37)
[2021-04-07] MEDS: DULOXETINE HCL 30 MG DELAYED RELEASE PO SCH (09:37)
[2021-04-07 11:08] VITALS: BP 125/54
[2021-04-07] MEDS: FOLIC ACID/CYANOCOB/PYRIDOXINE TAB PO SCH (16:59)
[2021-04-07 20:00] VITALS: BP 98/56
[2021-04-08] VITALS: BP 98/54
[2021-04-08] MEDS: VANCOMYCIN HCL 125 MG CAPSULE PO SCH ×3 (00:28→12:21)
[2021-04-08] MEDS: HYDROCODONE/APAP 7.5MG-325MG 1 EA TAB PO PRN (00:29)
[2021-04-08 04:00] VITALS: BP 116/49
[2021-04-08 05:05] LABS: BASOPHILS # (AUTO) 0.2 (0.0-0.1); BASOPHILS % 1.1 % (0.0-1.0); EOSINOPHILS # (AUTO) 0.3 (0.0-0.4); EOSINOPHILS % 2.2 % (0.0-6.0); HEMATOCRIT 38.1 % (34.2-44.1); HEMOGLOBIN 12.5 g/dL (12.0-16.0); LYMPHOCYTES # (AUTO) 2.9 (1.0-3.2); LYMPHOCYTES % 21.2 % (18.0-39.1); MEAN CORPUSCULAR HEMOGLOBIN 29.7 pg (28-32); MEAN CORPUSCULAR HGB CONC 32.8 g/dL (31-35); MEAN CORPUSCULAR VOLUME 90.5 fL (81-99); MONOCYTES # (AUTO) 0.9 (0.2-0.8); MONOCYTES % 6.7 % (4.4-11.3); NEUTROPHILS # (AUTO) 8.1 (2.1-6.9); NEUTROPHILS % 59.9 % (38.7-80.0); PLATELET COUNT 424 x10e3/uL (140-360); RED BLOOD COUNT 4.21 x10e6/uL (3.6-5.1); RED CELL DISTRIBUTION WIDTH 14.6 % (11.7-14.4)
[2021-04-08 08:09] VITALS: BP 133/59
[2021-04-08 08:41] LABS: LYMPHOCYTES % (MANUAL) 19 % (19-48); MONOCYTES % (MANUAL) 15 % (3.4-9.0); MYELOCYTES % (MANUAL) 1 % (0-0); NEUTROPHILS % (MANUAL) 65 % (40-74); PLATELET ESTIMATE ADEQUATE; PLATELET MORPHOLOGY COMMENT NORMAL; RBC MORPHOLOGY COMMENT NORMAL
[2021-04-08 08:50] VITALS: BP 133/59
[2021-04-08] MEDS: CALCIUM CARBONATE 500 MG CHEWABLE TABS PO SCH ×2 (09:00→09:23)
[2021-04-08] MEDS: PANTOPRAZOLE SOD 40 MG TABEC PO SCH (09:23)
[2021-04-08] MEDS: FERROUS SULFATE 325 MG TAB PO SCH (09:23)
[2021-04-08] MEDS: DULOXETINE HCL 30 MG DELAYED RELEASE PO SCH (09:23)
[2021-04-08 12:29] VITALS: BP 137/77
[2021-04-08] MEDS ORDERED: VANCOMYCIN HCL125 MG PO (13:17)
[2021-04-08] MEDS ORDERED: CHOLESTYRAMINE L4 GM PO (13:17)
== END 2021-04-08 14:50 | DRG 660 ==
LOC: ER 16:12 → ERHOLD 17:55 → MED/SURG2 20:11
PROVIDERS: ADMIT Internal Medicine; ATTEND Internal Medicine
PROC: 0T788DZ Dilation of Bilateral Ureters with Intraluminal Device, Via Natural or Artificial Opening Endoscopic (ICD-10-PCS; 2021-03-30)
PROC: 0TC68ZZ Extirpation of Matter from Right Ureter, Via Natural or Artificial Opening Endoscopic (ICD-10-PCS; 2021-03-30)
PROC: 0TC78ZZ Extirpation of Matter from Left Ureter, Via Natural or Artificial Opening Endoscopic (ICD-10-PCS; 2021-03-30)
PROC: 0TC08ZZ Extirpation of Matter from Right Kidney, Via Natural or Artificial Opening Endoscopic (ICD-10-PCS; 2021-03-30)
PROC: 0TC18ZZ Extirpation of Matter from Left Kidney, Via Natural or Artificial Opening Endoscopic (ICD-10-PCS; principal; 2021-03-30 12:30)
DX: N13.6 Pyonephrosis (principal); M62.82 Rhabdomyolysis; E87.1 Hypo-osmolality and hyponatremia; M84.48XA Pathological fracture, other site, initial encounter for fracture; E87.2 Acidosis; B37.49 Other urogenital candidiasis; A04.72 Enterocolitis due to Clostridium difficile, not specified as recurrent; N17.0 Acute kidney failure with tubular necrosis; E86.0 Dehydration; B95.2 Enterococcus as the cause of diseases classified elsewhere; N81.3 Complete uterovaginal prolapse; N36.41 Hypermobility of urethra; N95.2 Postmenopausal atrophic vaginitis; S00.11XA Contusion of right eyelid and periocular area, initial encounter; K21.9 Gastro-esophageal reflux disease without esophagitis; K58.0 Irritable bowel syndrome with diarrhea; Z87.442 Personal history of urinary calculi; Z96.0 Presence of urogenital implants; Z89.611 Acquired absence of right leg above knee; G89.4 Chronic pain syndrome; Z98.84 Bariatric surgery status; Z90.49 Acquired absence of other specified parts of digestive tract; Z20.822 Contact with and (suspected) exposure to COVID-19; I10 Essential (primary) hypertension; E11.9 Type 2 diabetes mellitus without complications; I25.10 Atherosclerotic heart disease of native coronary artery without angina pectoris; W01.0XXA Fall on same level from slipping, tripping and stumbling without subsequent striking against object, initial encounter; Y93.89 Activity, other specified; Y92.012 Bathroom of single-family (private) house as the place of occurrence of the external cause; E66.9 Obesity, unspecified; E83.51 Hypocalcemia; E87.6 Hypokalemia; R53.81 Other malaise; E83.42 Hypomagnesemia; Z68.36 Body mass index [BMI] 36.0-36.9, adult
CPT/HCPCS: 36415; 36600; 51700; 70450; 70486; 71045; 71250; 72125; 72170; 74176; 74420; 80048; 80053; 81001; 82270; 82550; 82805; 83735; 84550; 85025; 87086; 87186; 87493; 88300; 93005; 94799; 96360; 97139; 99251; 99284; C1769; C2617; J0696; J1100; J1450; J1580; J2001; J2250; J2270; J2370; J2405; J3475; J3480; J7030; J7070; J7121; U0002

== ENCOUNTER 2021-04-27 18:09 | Inpatient (IN) | payer MEDICARE, OTHER ==
[~2021-04-27] VITALS: Ht 175.3 cm; Wt 110.7 kg
[~2021-04-27 18:09] MED LIST changes: +CHOLESTYRAMINE L4 GM PO; +VANCOMYCIN HCL125 MG PO
[2021-04-27] MEDS ORDERED: SODIUM CHLORIDE 0.9% 1000ML 1,000 ML IV STA (18:47)
[2021-04-27 19:30] LABS: CLARITY,URINE TURBID (CLEAR); COLOR,URINE YELLOW (YELLOW); KETONES,URINE 1+ (NEGATIVE); LEUKOCYTE ESTERASE ,URINE LARGE (NEGATIVE); NITRITE,URINE NEGATIVE (NEGATIVE); PROTEIN,URINE DIPSTICK 2+ (NEGATIVE); URINE UROBILINOGEN 0.2 mg/dL (0.2 - 1)
[2021-04-27 19:33] LABS: BACTERIA,URINE MANY /HPF; EPITHELIAL CELLS,URINE RARE /LPF
[2021-04-27 20:06] LABS: BASOPHILS # (AUTO) 0.2 (0.0-0.1); BASOPHILS % 1.3 % (0.0-1.0); EOSINOPHILS # (AUTO) 0.1 (0.0-0.4); EOSINOPHILS % 0.9 % (0.0-6.0); HEMATOCRIT 41.9 % (34.2-44.1); HEMOGLOBIN 13.9 g/dL (12.0-16.0); LYMPHOCYTES # (AUTO) 1.8 (1.0-3.2); LYMPHOCYTES % 13.5 % (18.0-39.1); MEAN CORPUSCULAR HEMOGLOBIN 30.3 pg (28-32); MEAN CORPUSCULAR HGB CONC 33.2 g/dL (31-35); MEAN CORPUSCULAR VOLUME 91.5 fL (81-99); MONOCYTES # (AUTO) 0.8 (0.2-0.8); MONOCYTES % 5.7 % (4.4-11.3); NEUTROPHILS # (AUTO) 10.1 (2.1-6.9); NEUTROPHILS % 74.2 % (38.7-80.0); PLATELET COUNT 571 x10e3/uL (140-360); RED BLOOD COUNT 4.58 x10e6/uL (3.6-5.1); RED CELL DISTRIBUTION WIDTH 16.5 % (11.7-14.4)
[2021-04-27 20:24] LABS: ALBUMIN 3.2 g/dL (3.5-5.0); ALBUMIN/GLOBULIN RATIO 0.7 (0.8-2.0); ANION GAP 17.9 mmol/L (8-16); CALCIUM 10.7 mg/dL (8.4-10.2); CREATININE, SERUM 1.15 mg/dL (0.57-1.11); POTASSIUM 3.9 mmol/L (3.5-5.1)
[2021-04-27 20:29] LABS: CREATINE KINASE MB 2.2 ng/mL (0-5.0)
[2021-04-27] MEDS: SODIUM CHLORIDE 0.9% 1000ML 1,000 ML IV SCH (20:45)
[2021-04-27] MEDS ORDERED: Morphine 4mg Syringe 4 MG/ML INJ IV PRN (22:00)
[2021-04-27] MEDS ORDERED: ONDANSETRON HCL INJ 2MG/ML 2ML 2 MG/ML VIAL IV PRN (22:00)
[2021-04-27] MEDS: HYDROCODONE/APAP 7.5MG-325MG 1 EA TAB PO PRN (22:43)
[2021-04-28] VITALS (7 sets, daily range): BP systolic 120–141; BP diastolic 55–85
[2021-04-28 06:11] LABS: BASOPHILS # (AUTO) 0.3 (0.0-0.1); BASOPHILS % 2.2 % (0.0-1.0); EOSINOPHILS # (AUTO) 0.4 (0.0-0.4); EOSINOPHILS % 3.1 % (0.0-6.0); HEMATOCRIT 40.1 % (34.2-44.1); HEMOGLOBIN 12.5 g/dL (12.0-16.0); LYMPHOCYTES # (AUTO) 2.8 (1.0-3.2); LYMPHOCYTES % 24.5 % (18.0-39.1); MEAN CORPUSCULAR HEMOGLOBIN 30.5 pg (28-32); MEAN CORPUSCULAR HGB CONC 31.2 g/dL (31-35); MEAN CORPUSCULAR VOLUME 97.8 fL (81-99); MONOCYTES # (AUTO) 1.1 (0.2-0.8); MONOCYTES % 9.2 % (4.4-11.3); NEUTROPHILS # (AUTO) 6.5 (2.1-6.9); NEUTROPHILS % 56.9 % (38.7-80.0); PLATELET COUNT 427 x10e3/uL (140-360); RED CELL DISTRIBUTION WIDTH 16.7 % (11.7-14.4)
[2021-04-28 06:46] LABS: ALBUMIN 2.9 g/dL (3.5-5.0); ALBUMIN/GLOBULIN RATIO 0.7 (0.8-2.0); ANION GAP 14.6 mmol/L (8-16); CREATININE, SERUM 1.35 mg/dL (0.57-1.11); POTASSIUM 3.6 mmol/L (3.5-5.1)
[2021-04-28] MEDS ORDERED: GABAPENTIN 300 MG CAP PO SCH (09:00)
[2021-04-28] MEDS ORDERED: ENOXAPARIN SOD INJ 40 MG/0.4 ML SYR SC SCH (09:00)
[2021-04-28] MEDS: SODIUM CHLORIDE 0.9% 1000ML 1,000 ML IV SCH ×2 (09:17→21:19)
[2021-04-28] MEDS: FLUCONAZOLE 100 MG TAB PO SCH (09:57)
[2021-04-28] MEDS: LACTOBACILLUS ACIDOPHILUS CAPSULE PO SCH ×3 (09:58→20:37)
[2021-04-28] MEDS ORDERED: SODIUM CHLORIDE 0.9% 1000ML 1,000 ML IV ONE (10:30)
[2021-04-28] MEDS: GABAPENTIN 100 MG CAP PO SCH ×2 (14:52→20:37)
[2021-04-28] MEDS ORDERED: OMEPRAZOLE 20 MG CAP PO SCH (16:30)
[2021-04-28] MEDS: PANTOPRAZOLE SOD 40 MG TABEC PO SCH (17:03)
[2021-04-28] MEDS: HYDROCODONE/APAP 7.5MG-325MG 1 EA TAB PO PRN (19:16)
[2021-04-28] MEDS: ACETAMINOPHEN 325 MG TAB PO PRN (23:15)
[2021-04-28] MEDS: CLONAZEPAM 0.5 MG TAB PO PRN (23:15)
[2021-04-29] VITALS (8 sets, daily range): BP systolic 98–144; BP diastolic 58–84
[2021-04-29 06:07] LABS: BASOPHILS # (AUTO) 0.3 (0.0-0.1); BASOPHILS % 2.7 % (0.0-1.0); EOSINOPHILS # (AUTO) 0.4 (0.0-0.4); EOSINOPHILS % 4.5 % (0.0-6.0); HEMATOCRIT 36.7 % (34.2-44.1); HEMOGLOBIN 11.7 g/dL (12.0-16.0); LYMPHOCYTES # (AUTO) 3.2 (1.0-3.2); LYMPHOCYTES % 34.6 % (18.0-39.1); MEAN CORPUSCULAR HEMOGLOBIN 29.8 pg (28-32); MEAN CORPUSCULAR HGB CONC 31.9 g/dL (31-35); MEAN CORPUSCULAR VOLUME 93.6 fL (81-99); MONOCYTES # (AUTO) 0.9 (0.2-0.8); MONOCYTES % 10.1 % (4.4-11.3); NEUTROPHILS % 42.7 % (38.7-80.0); PLATELET COUNT 474 x10e3/uL (140-360); RED BLOOD COUNT 3.92 x10e6/uL (3.6-5.1); RED CELL DISTRIBUTION WIDTH 16.8 % (11.7-14.4)
[2021-04-29 06:29] LABS: ANION GAP 14.1 mmol/L (8-16); CALCIUM 9.2 mg/dL (8.4-10.2); CREATININE, SERUM 1.08 mg/dL (0.57-1.11); POTASSIUM 3.1 mmol/L (3.5-5.1)
[2021-04-29] MEDS: PANTOPRAZOLE SOD 40 MG TABEC PO SCH (08:37)
[2021-04-29] MEDS: GABAPENTIN 100 MG CAP PO SCH ×3 (08:38→21:58)
[2021-04-29] MEDS: LACTOBACILLUS ACIDOPHILUS CAPSULE PO SCH ×3 (08:38→21:58)
[2021-04-29] MEDS: FLUCONAZOLE 100 MG TAB PO SCH (08:38)
[2021-04-29] MEDS ORDERED: ENOXAPARIN 30 MG/0.3 ML SYR SC SCH (09:00)
[2021-04-29] MEDS: ACETAMINOPHEN 325 MG TAB PO PRN (10:06)
[2021-04-29] MEDS ORDERED: ONDANSETRON HCL 4 MG ORAL DISINTEGRATING TAB PO PRN (11:30)
[2021-04-29] MEDS: SODIUM CHLORIDE 0.9% 1000ML 1,000 ML IV SCH (12:06)
[2021-04-29] MEDS ORDERED: PSEUDOEPHEDRINE HCL 30 MG TAB PO PRN (13:45)
[2021-04-29] MEDS ORDERED: POTASSIUM CHLORIDE 10MEQ EA PO ONE (13:45)
[2021-04-29] MEDS: CLONAZEPAM 0.5 MG TAB PO PRN (21:58)
[2021-04-29] MEDS: HYDROCODONE/APAP 7.5MG-325MG 1 EA TAB PO PRN (21:58)
[2021-04-30] VITALS (8 sets, daily range): BP systolic 109–134; BP diastolic 62–76
[2021-04-30] MEDS: SODIUM CHLORIDE 0.9% 1000ML 1,000 ML IV SCH ×2 (02:25→21:01)
[2021-04-30] MEDS: PANTOPRAZOLE SOD 40 MG TABEC PO SCH (07:30)
[2021-04-30] MEDS: LACTOBACILLUS ACIDOPHILUS CAPSULE PO SCH ×3 (09:00→21:01)
[2021-04-30] MEDS: FLUCONAZOLE 100 MG TAB PO SCH (09:00)
[2021-04-30] MEDS: GABAPENTIN 100 MG CAP PO SCH ×3 (09:00→21:01)
[2021-04-30] MEDS: HYDROCODONE/APAP 7.5MG-325MG 1 EA TAB PO PRN (17:40)
[2021-04-30] MEDS ORDERED: CALCIUM CARBONATE 500 MG CHEWABLE TABS PO PRN (18:45)
[2021-05-01] VITALS (8 sets, daily range): BP systolic 111–144; BP diastolic 56–73
[2021-05-01] MEDS: SODIUM CHLORIDE 0.9% 1000ML 1,000 ML IV SCH ×2 (05:04→20:04)
[2021-05-01 07:28] LABS: ANION GAP 10.6 mmol/L (8-16); CALCIUM 7.8 mg/dL (8.4-10.2); CREATININE, SERUM 1.09 mg/dL (0.57-1.11); POTASSIUM 3.6 mmol/L (3.5-5.1)
[2021-05-01] MEDS: PANTOPRAZOLE SOD 40 MG TABEC PO SCH (09:39)
[2021-05-01] MEDS: FLUCONAZOLE 100 MG TAB PO SCH (09:39)
[2021-05-01] MEDS: LACTOBACILLUS ACIDOPHILUS CAPSULE PO SCH ×3 (09:39→20:04)
[2021-05-01] MEDS: GABAPENTIN 100 MG CAP PO SCH ×3 (09:39→20:04)
[2021-05-01] MEDS ORDERED: DIPHENHYDRAMINE HCL 25 MG CAP PO PRN (18:15)
[2021-05-02] VITALS (9 sets, daily range): BP systolic 121–136; BP diastolic 60–77
[2021-05-02] MEDS: LACTOBACILLUS ACIDOPHILUS CAPSULE PO SCH ×3 (08:57→21:17)
[2021-05-02] MEDS: FLUCONAZOLE 100 MG TAB PO SCH (08:57)
[2021-05-02] MEDS: PANTOPRAZOLE SOD 40 MG TABEC PO SCH (08:57)
[2021-05-02] MEDS: GABAPENTIN 100 MG CAP PO SCH ×3 (08:57→21:17)
[2021-05-02] MEDS ORDERED: CHOLESTYRAMINE 4 GM PACKET PO PRN (13:30)
[2021-05-02] MEDS: SODIUM CHLORIDE 0.9% 1000ML 1,000 ML IV SCH ×2 (14:12→19:57)
[2021-05-02] MEDS: HYDROCODONE/APAP 7.5MG-325MG 1 EA TAB PO PRN (21:17)
[2021-05-03] VITALS (8 sets, daily range): BP systolic 125–140; BP diastolic 58–80
[2021-05-03] MEDS: SODIUM CHLORIDE 0.9% 1000ML 1,000 ML IV SCH (05:41)
[2021-05-03] MEDS: GABAPENTIN 100 MG CAP PO SCH ×3 (09:46→20:15)
[2021-05-03] MEDS: PANTOPRAZOLE SOD 40 MG TABEC PO SCH (09:46)
[2021-05-03] MEDS: VANCOMYCIN HCL 125 MG CAPSULE PO SCH ×3 (09:46→23:50)
[2021-05-03] MEDS: CIPROFLOXACIN 500 MG TAB PO SCH ×2 (09:46→20:15)
[2021-05-03] MEDS: LACTOBACILLUS ACIDOPHILUS CAPSULE PO SCH ×3 (09:46→20:15)
[2021-05-03] MEDS ORDERED: CHOLESTYRAMINE 4 GM PACKET PO PRN (14:30)
[2021-05-04 04:55] VITALS: BP 137/68
[2021-05-04] MEDS: VANCOMYCIN HCL 125 MG CAPSULE PO SCH ×5 (06:00→23:20)
[2021-05-04 06:12] LABS: BASOPHILS # (AUTO) 0.2 (0.0-0.1); EOSINOPHILS # (AUTO) 0.4 (0.0-0.4); EOSINOPHILS % 3.7 % (0.0-6.0); HEMATOCRIT 41.4 % (34.2-44.1); HEMOGLOBIN 13.1 g/dL (12.0-16.0); LYMPHOCYTES # (AUTO) 2.2 (1.0-3.2); LYMPHOCYTES % 19.9 % (18.0-39.1); MEAN CORPUSCULAR HEMOGLOBIN 30.1 pg (28-32); MEAN CORPUSCULAR HGB CONC 31.6 g/dL (31-35); MEAN CORPUSCULAR VOLUME 95.2 fL (81-99); MONOCYTES # (AUTO) 0.8 (0.2-0.8); MONOCYTES % 6.9 % (4.4-11.3); NEUTROPHILS # (AUTO) 7.1 (2.1-6.9); NEUTROPHILS % 64.5 % (38.7-80.0); PLATELET COUNT 458 x10e3/uL (140-360); RED BLOOD COUNT 4.35 x10e6/uL (3.6-5.1); RED CELL DISTRIBUTION WIDTH 16.9 % (11.7-14.4)
[2021-05-04 06:35] LABS: INR 0.93; PROTHROMBIN TIME 13.3 seconds (11.9-14.5)
[2021-05-04 06:36] LABS: PARTIAL THROMBOPLASTIN TIME 32.5 seconds (23.8-35.5)
[2021-05-04 06:54] LABS: ANION GAP 15.5 mmol/L (8-16); CALCIUM 9.3 mg/dL (8.4-10.2); CREATININE, SERUM 0.98 mg/dL (0.57-1.11); MAGNESIUM 1.7 MG/DL (1.3-2.1); POTASSIUM 3.5 mmol/L (3.5-5.1)
[2021-05-04] MEDS: PANTOPRAZOLE SOD 40 MG TABEC PO SCH (07:30)
[2021-05-04 08:06] VITALS: BP 133/75
[2021-05-04] MEDS: LACTOBACILLUS ACIDOPHILUS CAPSULE PO SCH ×3 (08:15→21:10)
[2021-05-04] MEDS: GABAPENTIN 100 MG CAP PO SCH ×3 (09:00→21:10)
[2021-05-04] MEDS: CIPROFLOXACIN 500 MG TAB PO SCH ×2 (09:00→21:10)
[2021-05-04] MEDS ORDERED: PHENAZOPYRIDINE HCL 100 MG TAB PO PRN (13:30)
[2021-05-04] MEDS ORDERED: IOPAMIDOL 300MG/ML 50ML INFUS..BTL IV ONE (13:39)
[2021-05-04] MEDS ORDERED: B&O 60MG R/S 60 MG SUPP PR ONE (13:39)
[2021-05-04 14:44] VITALS: BP 108/79
[2021-05-04 15:30] VITALS: BP 136/76
[2021-05-04] MEDS ORDERED: MIDAZOLAM HCL 2 MG/2 ML VIAL ONE (17:12)
[2021-05-04] MEDS ORDERED: FENTANYL CITRATE/PF 100MCG/2 ML INJ ONE (17:12)
[2021-05-04] MEDS ORDERED: DEXAMETHASONE SOD PHOS INJ 4 MG/ML SDV ONE (17:33)
[2021-05-04] MEDS ORDERED: POVIDONE IODINE 0.05% 0.05 % ML PO ONE (17:33)
[2021-05-04] MEDS ORDERED: SEVOFLURANE INHAL SOLN 250 ML PEN BTL ONE (17:33)
[2021-05-04] MEDS ORDERED: ONDANSETRON HCL INJ 2MG/ML 2ML 2 MG/ML VIAL ONE (17:33)
[2021-05-04] MEDS ORDERED: LIDOCAINE HCL 2% LOCAL INJ 5 ML SDV VIAL INJ ONE (17:33)
[2021-05-04] MEDS ORDERED: PROPOFOL IV EMULSION 10 MG/ML 20 ML VIAL ONE (17:33)
[2021-05-04 20:00] VITALS: BP 145/86
[2021-05-04 21:00] VITALS: BP 145/86
[2021-05-05] VITALS: BP 135/83
[2021-05-05 04:00] VITALS: BP 117/57
[2021-05-05 05:34] LABS: BASOPHILS # (AUTO) 0.1 (0.0-0.1); BASOPHILS % 0.7 % (0.0-1.0); EOSINOPHILS % 0.3 % (0.0-6.0); HEMATOCRIT 38.3 % (34.2-44.1); LYMPHOCYTES # (AUTO) 1.7 (1.0-3.2); LYMPHOCYTES % 13.6 % (18.0-39.1); MEAN CORPUSCULAR HEMOGLOBIN 30.5 pg (28-32); MEAN CORPUSCULAR HGB CONC 31.3 g/dL (31-35); MEAN CORPUSCULAR VOLUME 97.2 fL (81-99); MONOCYTES # (AUTO) 0.6 (0.2-0.8); NEUTROPHILS # (AUTO) 9.5 (2.1-6.9); NEUTROPHILS % 78.5 % (38.7-80.0); PLATELET COUNT 435 x10e3/uL (140-360); RED BLOOD COUNT 3.94 x10e6/uL (3.6-5.1); RED CELL DISTRIBUTION WIDTH 16.8 % (11.7-14.4)
[2021-05-05] MEDS: VANCOMYCIN HCL 125 MG CAPSULE PO SCH ×2 (05:50→11:47)
[2021-05-05 06:08] LABS: ANION GAP 13.6 mmol/L (8-16); CALCIUM 8.8 mg/dL (8.4-10.2); CREATININE, SERUM 1.12 mg/dL (0.57-1.11); POTASSIUM 3.6 mmol/L (3.5-5.1)
[2021-05-05] MEDS: PANTOPRAZOLE SOD 40 MG TABEC PO SCH (06:21)
[2021-05-05 07:57] VITALS: BP 118/63
[2021-05-05] MEDS ORDERED: METRONIDAZOLE500 MG PO (08:55)
[2021-05-05] MEDS ORDERED: CIPROFLOXACIN500 MG PO (08:55)
[2021-05-05] MEDS: CIPROFLOXACIN 500 MG TAB PO SCH (09:00)
[2021-05-05] MEDS: GABAPENTIN 100 MG CAP PO SCH ×2 (09:00→15:00)
[2021-05-05] MEDS: LACTOBACILLUS ACIDOPHILUS CAPSULE PO SCH ×2 (09:00→15:00)
[2021-05-05 09:48] VITALS: BP 118/63
[2021-05-05 11:49] VITALS: BP 155/70
[2021-05-05 16:23] VITALS: BP 130/75
[2021-05-07] MEDS ORDERED: CIPRO500 MG PO (16:31)
[2021-05-07] MEDS ORDERED: METRONIDAZOLE500 MG PO (16:32)
== END 2021-05-05 17:11 | disposition home or self-care (01) | DRG 690 ==
LOC: ER 18:18 → ERHOLD 20:45 → MED/SURG2 04-28 00:05 → OBSVTOIN 04-29 10:12
PROVIDERS: ADMIT Internal Medicine; ATTEND Internal Medicine
PROC: 0TP98DZ Removal of Intraluminal Device from Ureter, Via Natural or Artificial Opening Endoscopic (ICD-10-PCS; principal; 2021-05-04 13:32)
DX: N13.6 Pyonephrosis (principal); Z16.12 Extended spectrum beta lactamase (ESBL) resistance; E87.2 Acidosis; N17.9 Acute kidney failure, unspecified; N81.4 Uterovaginal prolapse, unspecified; B96.1 Klebsiella pneumoniae [K. pneumoniae] as the cause of diseases classified elsewhere; Z99.3 Dependence on wheelchair; Z89.611 Acquired absence of right leg above knee; Z96.0 Presence of urogenital implants; N36.41 Hypermobility of urethra; N95.2 Postmenopausal atrophic vaginitis; I10 Essential (primary) hypertension; E11.9 Type 2 diabetes mellitus without complications; I25.10 Atherosclerotic heart disease of native coronary artery without angina pectoris; Z98.84 Bariatric surgery status; Z90.49 Acquired absence of other specified parts of digestive tract; K58.9 Irritable bowel syndrome, unspecified; Z20.822 Contact with and (suspected) exposure to COVID-19; K21.9 Gastro-esophageal reflux disease without esophagitis; G89.4 Chronic pain syndrome; E87.6 Hypokalemia; R19.7 Diarrhea, unspecified; Z86.19 Personal history of other infectious and parasitic diseases
CPT/HCPCS: 36415; 70450; 74018; 74420; 80048; 80053; 81001; 82550; 82553; 82948; 83735; 84484; 85025; 85610; 85730; 87086; 87186; 93005; 94799; 96360; 96361; 97139; 99285; C1769; G0378; J0696; J1100; J1650; J2001; J2250; J2405; J2543; J3010; J7030; Q0162; U0002

== ENCOUNTER 2024-04-07 10:54 | Emergency (ER) | payer MEDICARE ==
[~2024-04-07] VITALS: Ht 175.3 cm; Wt 110.7 kg
[~2024-04-07 10:54] MED LIST changes: +CIPRO500 MG PO; +CIPROFLOXACIN500 MG PO; +METRONIDAZOLE500 MG PO
[2024-04-07 11:02] VITALS: TEMP 98.7
[2024-04-07 11:20] LABS: BASOPHILS # (AUTO) 0.1 (0.0-0.1); BASOPHILS % 1.2 % (0.0-1.0); EOSINOPHILS # (AUTO) 0.3 (0.0-0.4); EOSINOPHILS % 2.6 % (0.0-6.0); HEMATOCRIT 40.1 % (34.2-44.1); HEMOGLOBIN 12.7 g/dL (12.0-16.0); LYMPHOCYTES # (AUTO) 2.4 (1.0-3.2); LYMPHOCYTES % 22.7 % (18.0-39.1); MEAN CORPUSCULAR HEMOGLOBIN 26.6 pg (28-32); MEAN CORPUSCULAR HGB CONC 31.7 g/dL (31-35); MEAN CORPUSCULAR VOLUME 84.1 fL (81-99); MONOCYTES # (AUTO) 1.1 (0.2-0.8); MONOCYTES % 10.6 % (4.4-11.3); NEUTROPHILS # (AUTO) 6.5 (2.1-6.9); NEUTROPHILS % 62.3 % (38.7-80.0); PLATELET COUNT 367 x10e3/uL (140-360); RED BLOOD COUNT 4.77 x10e6/uL (3.6-5.1); RED CELL DISTRIBUTION WIDTH 17.5 % (11.7-14.4); WHITE BLOOD COUNT 10.48 x10e3/uL (4.8-10.8)
[2024-04-07 11:48] LABS: ALBUMIN 3.5 g/dL (3.5-5.0); ALBUMIN/GLOBULIN RATIO 1.2 (0.8-2.0); ANION GAP 14.4 mmol/L (8-16); BILIRUBIN,TOTAL 0.4 mg/dL (0.2-1.2); CALCIUM 8.3 mg/dL (8.4-10.2); CREATININE, SERUM 0.83 mg/dL (0.57-1.11); TOTAL PROTEIN 6.5 g/dL (6.5-8.1)
[2024-04-07 11:53] LABS: POTASSIUM 3.4 mmol/L (3.5-5.1)
[2024-04-07] MEDS ORDERED: IOPAMIDOL 370 MG/ML 100 ML INFUS..BTL INJ ONE (11:54)
[2024-04-07 12:35] LABS: CLARITY,URINE CLEAR (CLEAR); COLOR,URINE YELLOW (YELLOW)
[2024-04-07 12:36] LABS: BILIRUBIN,URINE NEGATIVE (NEGATIVE); GLUCOSE, URINE NEGATIVE (NEGATIVE); KETONES,URINE NEGATIVE (NEGATIVE); LEUKOCYTE ESTERASE ,URINE TRACE (NEGATIVE); NITRITE,URINE NEGATIVE (NEGATIVE); PH,URINE 6 (5 - 7); PROTEIN,URINE DIPSTICK 1+ (NEGATIVE); URINE UROBILINOGEN 1 mg/dL (0.2 - 1)
[2024-04-07 12:55] LABS: BACTERIA,URINE FEW /HPF; EPITHELIAL CELLS,URINE FEW /LPF; RBC,URINE 0-5 /HPF (0-5); WBC,URINE (MAN) 21-50 /HPF (0-5)
[2024-04-07 14:00] VITALS: PULSE 87; RESP 16; O2SAT 98
== END 2024-04-07 14:14 | disposition home or self-care (01) ==
LOC: ER 11:08
DX: R19.7 Diarrhea, unspecified (principal); I10 Essential (primary) hypertension; E11.65 Type 2 diabetes mellitus with hyperglycemia; J44.9 Chronic obstructive pulmonary disease, unspecified; I25.10 Atherosclerotic heart disease of native coronary artery without angina pectoris; M21.372 Foot drop, left foot
CPT/HCPCS: 36415; 74177; 80053; 81001; 83690; 85025; 99284; Q9967